=== PATIENT | female | born 1970 | race Hispanic/Latino ===

== ENCOUNTER 2017-04-01 09:06 | Day surgery (SDC) | payer MEDICAID ==
[~2017-04-01] VITALS: Ht 162.6 cm; Wt 102.5 kg
[~2017-04-01 09:06] MED LIST: SODIUM CHLORIDE 0.9% 1000ML 1,000 ML IV ONE
[2017-04-01 10:02] VITALS: BP 126/77
[2017-04-01] MEDS ORDERED: AZAT50TA PO (10:16)
[2017-04-01] MEDS ORDERED: BUPR100T13 PO (10:16)
[2017-04-01] MEDS ORDERED: HYDR25TA PO (10:16)
[2017-04-01] MEDS ORDERED: PROPOFOL 10 MG/ML 20ML VIAL IV ONE (10:30)
== END 2017-04-01 11:15 | disposition home or self-care (01) ==
LOC: DAH 09:06 → ENDO 09:06
PROVIDERS: ATTEND Internal Medicine
DX: K21.9 Gastro-esophageal reflux disease without esophagitis (principal); K29.60 Other gastritis without bleeding; K31.9 Disease of stomach and duodenum, unspecified; K75.4 Autoimmune hepatitis; B18.2 Chronic viral hepatitis C; K64.9 Unspecified hemorrhoids; Z86.010 Personal history of colon polyps; E66.9 Obesity, unspecified
CPT/HCPCS: 43239; 88305; 88312; 88342; A4606; J2704; J7030

== ENCOUNTER → 2017-04-14 | Outpatient (CLI) | payer MEDICAID ==
[~2017-04-14] MED LIST changes: +AZAT50TA PO; +BUPR100T13 PO; +HYDR25TA PO; -SODIUM CHLORIDE 0.9% 1000ML 1,000 ML IV ONE
== END | disposition home or self-care (01) ==
LOC: RAH 11:19
PROVIDERS: ATTEND Internal Medicine
DX: K74.60 Unspecified cirrhosis of liver (principal); K75.4 Autoimmune hepatitis; I86.8 Varicose veins of other specified sites; R16.1 Splenomegaly, not elsewhere classified; Z90.49 Acquired absence of other specified parts of digestive tract
CPT/HCPCS: 76700; 93975

== ENCOUNTER 2018-02-26 13:38 | Emergency (ER) | payer MEDICAID ==
[2018-02-26 15:48] LABS: APPEARANCE,URINE Clear (CLEAR); BILIRUBIN,URINE Negative (NEGATIVE); COLOR,URINE Dark Yellow (YELLOW); GLUCOSE, URINE (UA) Negative (NEGATIVE); KETONES,URINE Trace mg/dL (NEGATIVE); LEUKOCYTE ESTERASE ,URINE Negative (NEGATIVE); NITRATE,URINE Negative (NEGATIVE); OCCULT BLOOD,URINE Negative (NEGATIVE); PROTEIN,URINE Negative (NEGATIVE); UROBILINOGEN,URINE 0.2 mg/dL (0.2-1.0)
[2018-02-26] MEDS ORDERED: ONDANSETRON HCL 4 MG/2 ML VIAL ONE (15:55)
[2018-02-26] MEDS ORDERED: KETOROLAC TROMETHAMINE 30MG/ML ONE (15:55)
[2018-02-26] MEDS ORDERED: SODIUM CHLORIDE 0.9% 1000ML 1,000 ML IV ONE (15:55)
[2018-02-26 15:59] LABS: RBC,URINE 0-1 /HPF (0-1)
[2018-02-26 16:00] LABS: BACTERIA,URINE Rare /HPF (None Seen); SQUAMOUS EPITHELIAL CELL,UR 0-2 /HPF (0-2); TRICHOMONAS,URINE Few /LPF (None Seen); WBC,URINE 0-1 /HPF (0-1)
[2018-02-26 16:19] LABS: BASOPHILS % (AUTO) 0.1 % (0.0-5.0); EOSINOPHILS % (AUTO) 0.3 % (0.0-8.0); HEMATOCRIT 32.8 % (36-48); LYMPHOCYTES % (AUTO) 10.7 % (21.0-51.0); MEAN CORPUSCULAR HEMOGLOBIN 35.5 pg (27.0-33.0); MEAN CORPUSCULAR HGB CONC 35.3 g/dL (32.0-36.0); MEAN CORPUSCULAR VOLUME 100.5 fL (79-99); MONOCYTES % (AUTO) 5.7 % (3.0-13.0); NEUTROPHILS % (AUTO) 83.2 % (40.0-77.0); NUCLEATED RED BLOOD CELLS 0.2 % (0.0-0.19); PLATELET COUNT (AUTO) 67 K/uL (130-400); RED BLOOD CELL COUNT(AUTO) 3.26 MIL/uL (4.00-5.50); RED CELL DISTRIBUTION WIDTH 14.9 % (11.0-15.5); WHITE BLOOD COUNT (AUTO) 5.2 K/uL (4.8-10.8)
[2018-02-26 16:29] LABS: CREATININE 0.7 mg/dL (0.5-1.5); POTASSIUM 3.7 mmol/L (3.5-5.1)
[2018-02-26 16:37] LABS: ALBUMIN 2.6 g/dL (3.5-5.0); BILIRUBIN,TOTAL 0.4 mg/dL (0.2-1.0); TOTAL PROTEIN, SERUM 7.1 g/dL (6.0-8.3)
== END 2018-02-26 17:20 | disposition home or self-care (01) ==
LOC: EDH 13:38
DX: M54.6 Pain in thoracic spine (principal); R16.1 Splenomegaly, not elsewhere classified; I10 Essential (primary) hypertension; F32.9 Major depressive disorder, single episode, unspecified; Z85.6 Personal history of leukemia; Z90.710 Acquired absence of both cervix and uterus
CPT/HCPCS: 36415; 74176; 80053; 81001; 83690; 85025; 96374; 96375; 99284; J1885; J2405; J7030

== ENCOUNTER 2019-05-24 21:16 | Emergency (ER) | payer MEDICAID | END 2019-05-24 22:16 | disposition home or self-care (01) | LOC: EDH 21:16 | DX: S61.305A Unspecified open wound of left ring finger with damage to nail, initial encounter (principal); S08 Avulsion and traumatic amputation of part of head; F32.9 Major depressive disorder, single episode, unspecified; I10 Essential (primary) hypertension; Z71.0 Person encountering health services to consult on behalf of another person; Z90.49 Acquired absence of other specified parts of digestive tract; X58.XXXA Exposure to other specified factors, initial encounter; Y93.89 Activity, other specified; Y92.098 Other place in other non-institutional residence as the place of occurrence of the external cause; Y99.8 Other external cause status | CPT/HCPCS: 73140 ==

== ENCOUNTER → 2020-01-13 | Outpatient (CLI) | payer MEDICAID | END | disposition home or self-care (01) | LOC: RAH 09:06 | PROVIDERS: ATTEND Internal Medicine Gastroenterology | DX: R16.1 Splenomegaly, not elsewhere classified (principal); K74.60 Unspecified cirrhosis of liver; K75.4 Autoimmune hepatitis | CPT/HCPCS: 76700; 93975 ==

== ENCOUNTER → 2020-09-24 | Outpatient (CLI) | payer MEDICAID | END | disposition home or self-care (01) | LOC: RAH 08:55 | PROVIDERS: ATTEND Internal Medicine | DX: B19.20 Unspecified viral hepatitis C without hepatic coma (principal); B20 Human immunodeficiency virus [HIV] disease | CPT/HCPCS: 76705 ==

== ENCOUNTER 2021-06-14 12:01 | Emergency (ER) | payer MEDICAID ==
[~2021-06-14] VITALS: Ht 162.6 cm; Wt 118.8 kg
[2021-06-14] MEDS ORDERED: KETOROLAC 15MG/ML VIAL (15MG/ML) IM ONE (13:00)
[2021-06-14] MEDS ORDERED: NAPR500T6 PO (14:27)
[2021-06-14 14:50] VITALS: BP 134/74
== END 2021-06-14 14:52 | disposition home or self-care (01) ==
LOC: EDH 12:01
DX: M25.512 Pain in left shoulder (principal); R20.2 Paresthesia of skin; F32.A Depression, unspecified; Z79.1 Long term (current) use of non-steroidal anti-inflammatories (NSAID); Z79.899 Other long term (current) drug therapy; Z90.49 Acquired absence of other specified parts of digestive tract
CPT/HCPCS: 71045; 96372; 99283; J1885

== ENCOUNTER → 2022-08-11 | Outpatient (CLI) | payer MEDICAID ==
[~2022-08-11] MED LIST changes: +NAPR500T6 PO
[2022-08-11 12:07] LABS: CREATININE 0.9 mg/dL (0.5-1.5); POTASSIUM 3.4 mmol/L (3.5-5.1)
== END | disposition home or self-care (01) ==
LOC: LAB 10:00
PROVIDERS: ATTEND Student in an Organized Health Care Education/Training Program
DX: I10 Essential (primary) hypertension (principal)
CPT/HCPCS: 36415; 80048

== ENCOUNTER → 2022-08-14 | Outpatient (CLI) | payer MEDICAID ==
[~2022-08-14] MED LIST changes: +IOHEXOL 350 MG/ML 100ML INFUS..BTL IV ONE; +METOPROLOL TARTRATE 1 MG/ML 5ML VIAL IV ONE
== END | disposition home or self-care (01) ==
LOC: RAH 08:16
PROVIDERS: ATTEND Student in an Organized Health Care Education/Training Program
DX: R07.9 Chest pain, unspecified (principal)
CPT/HCPCS: 75574; J3490 ×3; Q9967

== ENCOUNTER 2022-11-14 12:05 | Emergency (ER) | payer MEDICAID ==
[~2022-11-14] VITALS: Ht 162.6 cm; Wt 122.5 kg
[~2022-11-14 12:05] MED LIST changes: -IOHEXOL 350 MG/ML 100ML INFUS..BTL IV ONE; -METOPROLOL TARTRATE 1 MG/ML 5ML VIAL IV ONE
[2022-11-14 12:45] LABS: BASOPHILS # (AUTO) 0.01 K/uL (0.00-0.20); BASOPHILS % (AUTO) 0.2 % (0.0-5.0); EOSINOPHILS % (AUTO) 1.8 % (0.0-8.0); HEMATOCRIT 35.2 % (36-48); IMMATURE GRANULOCYTE ABSOLUTE 0.02 K/uL (0-1); LYMPHOCYTES # (AUTO) 0.4 K/uL (1.0-4.8); LYMPHOCYTES % (AUTO) 6.6 % (21.0-51.0); MEAN CORPUSCULAR HEMOGLOBIN 27.4 pg (27.0-33.0); MEAN CORPUSCULAR HGB CONC 31.3 g/dL (32.0-36.0); MEAN CORPUSCULAR VOLUME 87.8 fL (79-99); MONOCYTES # (AUTO) 0.5 K/uL (0.1-1.0); MONOCYTES % (AUTO) 8.9 % (3.0-13.0); NEUTROPHILS # (AUTO) 4.5 K/uL (1.8-7.7); NEUTROPHILS % (AUTO) 82.1 % (40.0-77.0); PLATELET COUNT (AUTO) 152 K/uL (130-400); RED BLOOD CELL COUNT(AUTO) 4.01 MIL/uL (4.00-5.50); RED CELL DISTRIBUTION WIDTH 15.4 % (11.0-15.5); WHITE BLOOD COUNT (AUTO) 5.5 K/uL (4.8-10.8)
[2022-11-14 13:02] LABS: CREATININE 0.8 mg/dL (0.5-1.5); POTASSIUM 3.8 mmol/L (3.5-5.1)
[2022-11-14 13:06] LABS: ALBUMIN 2.2 g/dL (3.5-5.0); BILIRUBIN,TOTAL 0.6 mg/dL (0.2-1.0); TOTAL PROTEIN, SERUM 7.1 g/dL (6.0-8.3)
[2022-11-14 13:26] LABS: INR 1.06 (0.85-1.15); PROTHROMBIN TIME 12.2 SEC (9.6-11.6)
[2022-11-14 13:27] LABS: PARTIAL THROMBOPLASTIN TIME 36.2 SEC (26.3-35.5)
[2022-11-14] MEDS ORDERED: IPRATROPIUM/ALBUTEROL SULFATE 3 ML SOLUTION IH STA (13:44)
[2022-11-14 13:53] LABS: SARS-CoV-2, RNA, NAAT NEGATIVE SARS CoV-2 (NEGATIVE)
[2022-11-14 13:57] VITALS: PULSE 106; RESP 24
[2022-11-14 13:58] LABS: INFLUENZA TYPE A Negative For Type A (NEGATIVE); INFLUENZA TYPE B Negative For Type B (NEGATIVE)
[2022-11-14] MEDS ORDERED: ACET-66 PO (14:28)
[2022-11-14] MEDS ORDERED: LORA10TA7 PO (14:28)
[2022-11-14] MEDS ORDERED: FLUT16H NASAL (14:28)
[2022-11-14 14:37] VITALS: BP 152/79; PULSE 96; RESP 20; O2SAT 99
== END 2022-11-14 14:37 | disposition home or self-care (01) ==
LOC: EDH 12:05
DX: J06.9 Acute upper respiratory infection, unspecified (principal); F32.A Depression, unspecified; I10 Essential (primary) hypertension; Z79.624 Long term (current) use of inhibitors of nucleotide synthesis; Z79.631 Long term (current) use of antimetabolite agent; Z79.899 Other long term (current) drug therapy; Z90.49 Acquired absence of other specified parts of digestive tract; Z20.822 Contact with and (suspected) exposure to COVID-19
CPT/HCPCS: 99285; 71045; 87635; 82550; 84484; 80053; 83880; 82140; 85025; 85610; 85730; 87040 ×2; 87804 ×2; 83605; 36415; 93005; 94640; C9803

== ENCOUNTER 2022-11-22 15:14 | Inpatient (IN) | payer MEDICAID ==
[~2022-11-22] VITALS: Ht 162.6 cm; Wt 108.0 kg
[~2022-11-22 15:14] MED LIST changes: +ACET-66 PO; +FLUT16H NASAL; +LORA10TA7 PO
[2022-11-22 16:12] LABS: BASOPHILS # (AUTO) 0.01 K/uL (0.00-0.20); BASOPHILS % (AUTO) 0.1 % (0.0-5.0); HEMATOCRIT 38.6 % (36-48); IMMATURE GRANULOCYTE ABSOLUTE 0.07 K/uL (0-1); LYMPHOCYTES # (AUTO) 0.3 K/uL (1.0-4.8); LYMPHOCYTES % (AUTO) 2.3 % (21.0-51.0); MEAN CORPUSCULAR HEMOGLOBIN 27.3 pg (27.0-33.0); MEAN CORPUSCULAR HGB CONC 31.6 g/dL (32.0-36.0); MEAN CORPUSCULAR VOLUME 86.4 fL (79-99); MONOCYTES # (AUTO) 0.3 K/uL (0.1-1.0); MONOCYTES % (AUTO) 2.8 % (3.0-13.0); NEUTROPHILS # (AUTO) 10.5 K/uL (1.8-7.7); NEUTROPHILS % (AUTO) 94.2 % (40.0-77.0); PLATELET COUNT (AUTO) 204 K/uL (130-400); RED BLOOD CELL COUNT(AUTO) 4.47 MIL/uL (4.00-5.50); WHITE BLOOD COUNT (AUTO) 11.2 K/uL (4.8-10.8)
[2022-11-22 16:23] LABS: CREATININE 0.8 mg/dL (0.5-1.5); POTASSIUM 3.8 mmol/L (3.5-5.1)
[2022-11-22 16:33] LABS: BILIRUBIN,TOTAL 1.1 mg/dL (0.2-1.0); TOTAL PROTEIN, SERUM 7.1 g/dL (6.0-8.3)
[2022-11-22 16:36] LABS: B-TYPE NATRIURETIC PEPTIDE 23 pg/mL (0-100)
[2022-11-22 16:43] LABS: SARS-CoV-2, RNA, NAAT NEGATIVE SARS CoV-2 (NEGATIVE)
[2022-11-22 16:50] LABS: INFLUENZA TYPE A Negative For Type A (NEGATIVE); INFLUENZA TYPE B Negative For Type B (NEGATIVE)
[2022-11-22] MEDS ORDERED: IOHEXOL-350 50ML VIAL IV ONE (18:50)
[2022-11-22] MEDS ORDERED: LACTATED RINGERS 1000ML 1,000 ML IV SCH (19:30)
[2022-11-22] MEDS ORDERED: ONDANSETRON 4MG INJ IV PRN (19:30)
[2022-11-22] MEDS ORDERED: POTASSIUM CHLORIDE 10MEQ/100ML 100 ML IV PRN (20:00)
[2022-11-22] MEDS ORDERED: POTASSIUM CHLORIDE 10% ELIXIR 20 MEQ/15 ML UDCUP PO PRN (20:00)
[2022-11-22 20:14] VITALS: PULSE 100; RESP 20; O2SAT 97
[2022-11-22 20:17] LABS: APPEARANCE,URINE SL CLOUDY (CLEAR); BILIRUBIN,URINE NEGATIVE (NEGATIVE); COLOR,URINE YELLOW (YELLOW); GLUCOSE, URINE (UA) NEGATIVE (NEGATIVE); KETONES,URINE NEGATIVE (NEGATIVE); LEUKOCYTE ESTERASE ,URINE NEGATIVE Leu/uL (NEGATIVE); NITRATE,URINE NEGATIVE (NEGATIVE); OCCULT BLOOD,URINE NEGATIVE (NEGATIVE); PROTEIN,URINE NEGATIVE (NEGATIVE)
[2022-11-22 20:18] LABS: ADD UA MICROSCOPIC YES
[2022-11-22 20:25] LABS: BACTERIA,URINE FEW /HPF (None Seen); MUCUS,URINE RARE LPF (None Seen); SQUAMOUS EPITHELIAL CELL,UR RARE /HPF (0-2); WBC,URINE 0-1 /HPF (0-1); YEAST,URINE BUDDING RARE /HPF (None Seen)
[2022-11-22] MEDS: INSULIN HUMULIN R 100 UNIT/ML 3ML SQ SCH (20:37)
[2022-11-22 21:43] VITALS: O2SAT 96
[2022-11-22 21:44] VITALS: O2SAT 96
[2022-11-22 21:46] VITALS: BP 111/61; PULSE 98; RESP 18
[2022-11-22] MEDS ORDERED: LACTULOSE 20 GM/30 ML UDCUP PO PRN (23:00)
[2022-11-22 23:43] VITALS: PULSE 94; RESP 20
[2022-11-22] MEDS: FUROSEMIDE 40MG VIAL IV SCH (23:47)
[2022-11-23] VITALS (12 sets, daily range): BP systolic 119–136; BP diastolic 66–82; PULSE 90–111; RESP 18–24; O2SAT 95–97
[2022-11-23 01:29] LABS: ABG BASE EXCESS 4.8 mmol/L (-2.0-3.0); ABG HCO3 27.7 mmol/L (21.0-28.0); ABG OXYGEN SATURATION 94.9 % (95.0-99.0); ABG PCO2 35 mmHg (32-45); ABG PH 7.514 (7.35-7.450); PO2, ARTERIAL BG 70.4 mmHg (83.0-108.0); VENT MODE, BG NC,28 (ROOM AIR)
[2022-11-23] MEDS: ALBUTEROL 0.083% 2.5 MG/3 ML INH IH SCH ×2 (01:41→06:58)
[2022-11-23] MEDS: ACETAMINOPHEN 325 MG TAB PO PRN ×2 (03:26→16:17)
[2022-11-23] MEDS: INSULIN HUMULIN R 100 UNIT/ML 3ML SQ SCH ×4 (05:11→21:00)
[2022-11-23 06:02] LABS: BASOPHILS # (AUTO) 0.02 K/uL (0.00-0.20); BASOPHILS % (AUTO) 0.2 % (0.0-5.0); EOSINOPHILS # (AUTO) 0.11 K/uL (0.00-0.70); EOSINOPHILS % (AUTO) 1.2 % (0.0-8.0); HEMATOCRIT 34.6 % (36-48); IMMATURE GRANULOCYTE ABSOLUTE 0.05 K/uL (0-1); LYMPHOCYTES # (AUTO) 0.5 K/uL (1.0-4.8); LYMPHOCYTES % (AUTO) 5.4 % (21.0-51.0); MEAN CORPUSCULAR HEMOGLOBIN 27.5 pg (27.0-33.0); MEAN CORPUSCULAR HGB CONC 32.1 g/dL (32.0-36.0); MEAN CORPUSCULAR VOLUME 85.9 fL (79-99); MONOCYTES % (AUTO) 10.9 % (3.0-13.0); NEUTROPHILS # (AUTO) 7.8 K/uL (1.8-7.7); NEUTROPHILS % (AUTO) 81.8 % (40.0-77.0); PLATELET COUNT (AUTO) 187 K/uL (130-400); RED BLOOD CELL COUNT(AUTO) 4.03 MIL/uL (4.00-5.50); RED CELL DISTRIBUTION WIDTH 16.1 % (11.0-15.5); WHITE BLOOD COUNT (AUTO) 9.5 K/uL (4.8-10.8)
[2022-11-23 06:14] LABS: CREATININE 0.9 mg/dL (0.5-1.5); PHOSPHORUS 3.6 mg/dL (2.5-4.9); POTASSIUM 3.4 mmol/L (3.5-5.1)
[2022-11-23 06:17] LABS: HEMOGLOBIN A1C 5.4 % (4.0-6.0)
[2022-11-23 06:20] LABS: INR 1.13 (0.85-1.15)
[2022-11-23 06:21] LABS: PARTIAL THROMBOPLASTIN TIME 36.3 SEC (26.3-35.5)
[2022-11-23] MEDS: KCL 20 MEQ ERTAB PO PRN ×2 (06:28→08:25)
[2022-11-23 08:07] LABS: TOTAL PROTEIN, SERUM 6.9 g/dL (6.0-8.3)
[2022-11-23] MEDS: LACTULOSE 20 GM/30 ML UDCUP PO SCH ×2 (08:22→20:02)
[2022-11-23] MEDS: FAMOTIDINE 20MG VIAL IV SCH (08:26)
[2022-11-23] MEDS ORDERED: HYDRALAZINE 20MG/ML VIAL IV PRN (08:30)
[2022-11-23] MEDS ORDERED: LABETALOL 20MG VIAL IV PRN (08:30)
[2022-11-23] MEDS ORDERED: MV-M1TAB66 PO (09:49)
[2022-11-23] MEDS ORDERED: DICY20TA3 PO (09:49)
[2022-11-23] MEDS ORDERED: [UNRECOGNIZED DRUG - CODE] PO (09:49)
[2022-11-23] MEDS ORDERED: VITA1TAB22 PO (09:49)
[2022-11-23] MEDS ORDERED: SPIR25TA6 PO (09:49)
[2022-11-23] MEDS ORDERED: LORA10TA7 PO (09:49)
[2022-11-23] MEDS ORDERED: FERS325 PO (09:49)
[2022-11-23] MEDS ORDERED: DOLU1TAB2 PO (09:49)
[2022-11-23] MEDS ORDERED: BUPR-317 PO (09:49)
[2022-11-23] MEDS ORDERED: AVAT20TA PO (09:49)
[2022-11-23] MEDS ORDERED: SUCR1TAB2 PO (09:49)
[2022-11-23] MEDS: FUROSEMIDE 40MG VIAL IV SCH ×2 (11:52→22:46)
[2022-11-23] MEDS ORDERED: LIDOCAINE HCL MPF 1% 5ML VIAL ONE (14:24)
[2022-11-23] MEDS: CEFTRIAXONE 1G VIAL IVPB SCH (14:55)
[2022-11-23] MEDS: AZITHROMYCIN 500MG+NS 250ML IVPB SCH (16:09)
[2022-11-23 16:54] LABS: GLUCOSE PLEURAL FLUID 67; PROTEIN PLEURAL FLUID 4.3 mg/dL
[2022-11-23 17:27] LABS: BODY FLUID RBC 10234 /cu. mm.; BODY FLUID WBC 1580 /cu. mm.
[2022-11-23] MEDS: MORPHINE 2 MG SYG IV PRN (20:02)
[2022-11-23 20:29] LABS: BF LYMPHOCYTE 43 %; BF MACROPHAGE 2; BF MONOCYTE 2 %; BF TOTAL CELLS COUNTED 100
[2022-11-23 20:32] LABS: APPEARANCE BODY FLUID CLOUDY (CLEAR); SPECIMENTYPE,BODY FLUID PLEURAL
[2022-11-23 20:33] LABS: COLOR,BODY FLUID ORANGE (LT YELLOW); TOTAL VOLUME,BODY FLUID 750 mL
[2022-11-23 20:38] LABS: PH PLEURAL FLUID 7
[2022-11-23] MEDS: MORPHINE 4 MG SYG IV PRN (22:46)
[2022-11-24] VITALS (7 sets, daily range): BP systolic 118–138; BP diastolic 73–94; PULSE 71–100; RESP 18–20; O2SAT 97
[2022-11-24] MEDS: MORPHINE 2 MG SYG IV PRN ×3 (01:12→23:49)
[2022-11-24] MEDS: ACETAMINOPHEN 325 MG TAB PO PRN ×3 (01:18→18:50)
[2022-11-24] MEDS: MORPHINE 4 MG SYG IV PRN (05:06)
[2022-11-24] MEDS: INSULIN HUMULIN R 100 UNIT/ML 3ML SQ SCH ×4 (06:36→21:00)
[2022-11-24] MEDS: LACTULOSE 20 GM/30 ML UDCUP PO SCH ×2 (08:21→22:39)
[2022-11-24] MEDS: FAMOTIDINE 20MG VIAL IV SCH (08:23)
[2022-11-24 09:03] LABS: HEPATITIS C ANTIBODY Reactive (Nonreactive)
[2022-11-24] MEDS: FUROSEMIDE 40MG VIAL IV SCH (10:23)
[2022-11-24 11:50] LABS: HEPATITIS A IGM ANTIBODY Non-Reactive (Nonreactive); HEPATITIS B CORE IGM ANTIBODY Non-Reactive (Negative); HEPATITIS B SURFACE ANTIGEN Non-Reactive (Nonreactive)
[2022-11-24] MEDS: CEFTRIAXONE 1G VIAL IVPB SCH (14:31)
[2022-11-24] MEDS: AZITHROMYCIN 500MG+NS 250ML IVPB SCH (14:31)
[2022-11-24] MEDS ORDERED: BACTRIM 800MG/160MG 10ML VIAL 0 MG in 0.9%NACL 100ML 100 ML IV SCH (22:30)
[2022-11-24] MEDS: FAMOTIDINE 20MG TAB PO SCH (22:39)
[2022-11-24] MEDS: ZOSYN 3.375GM +NS 50ML IVPB SCH (22:47)
[2022-11-24] MEDS ORDERED: 0.9%NACL 50ML IV SCH (23:00)
[2022-11-25] VITALS (8 sets, daily range): BP systolic 106–127; BP diastolic 55–73; PULSE 81–98; RESP 18–20; O2SAT 96–97
[2022-11-25] MEDS: BACTRIM IV SCH ×2 (01:02→12:38)
[2022-11-25] MEDS: WATER IV SCH ×2 (01:02→12:38)
[2022-11-25] MEDS: DEXTROSE 5% IV SCH ×2 (01:02→12:38)
[2022-11-25] MEDS: ACETAMINOPHEN 325 MG TAB PO PRN ×3 (01:08→22:50)
[2022-11-25 04:29] LABS: BASOPHILS # (AUTO) 0.01 K/uL (0.00-0.20); BASOPHILS % (AUTO) 0.1 % (0.0-5.0); EOSINOPHILS # (AUTO) 0.09 K/uL (0.00-0.70); EOSINOPHILS % (AUTO) 1.3 % (0.0-8.0); IMMATURE GRANULOCYTE ABSOLUTE 0.03 K/uL (0-1); LYMPHOCYTES # (AUTO) 0.4 K/uL (1.0-4.8); LYMPHOCYTES % (AUTO) 5.2 % (21.0-51.0); MEAN CORPUSCULAR HEMOGLOBIN 27.4 pg (27.0-33.0); MEAN CORPUSCULAR HGB CONC 31.8 g/dL (32.0-36.0); MEAN CORPUSCULAR VOLUME 86.2 fL (79-99); MONOCYTES # (AUTO) 0.8 K/uL (0.1-1.0); MONOCYTES % (AUTO) 12.6 % (3.0-13.0); NEUTROPHILS # (AUTO) 5.4 K/uL (1.8-7.7); NEUTROPHILS % (AUTO) 80.4 % (40.0-77.0); PLATELET COUNT (AUTO) 135 K/uL (130-400); RED BLOOD CELL COUNT(AUTO) 3.83 MIL/uL (4.00-5.50); RED CELL DISTRIBUTION WIDTH 15.2 % (11.0-15.5); WHITE BLOOD COUNT (AUTO) 6.7 K/uL (4.8-10.8)
[2022-11-25 04:53] LABS: % IRON SATURATION 10.5 % (22-44)
[2022-11-25 05:10] LABS: ALBUMIN 1.6 g/dL (3.5-5.0); BILIRUBIN,TOTAL 0.7 mg/dL (0.2-1.0); CREATININE 0.7 mg/dL (0.5-1.5); MAGNESIUM 1.9 mg/dL (1.80-2.40); PHOSPHORUS 3.1 mg/dL (2.5-4.9); TOTAL PROTEIN, SERUM 6.3 g/dL (6.0-8.3)
[2022-11-25 05:11] LABS: POTASSIUM 2.9 mmol/L (3.5-5.1)
[2022-11-25] MEDS: MAGNESIUM 2GM PREMIX 50ML 50 ML IV PRN (05:28)
[2022-11-25] MEDS: KCL 20 MEQ ERTAB PO PRN ×5 (05:29→19:40)
[2022-11-25] MEDS: INSULIN HUMULIN R 100 UNIT/ML 3ML SQ SCH ×4 (05:48→19:39)
[2022-11-25] MEDS: ZOSYN 3.375GM +NS 50ML IVPB SCH ×3 (06:27→22:50)
[2022-11-25] MEDS: ENOXAPARIN SODIUM 40 MG/0.4 ML SYRINGE SQ SCH (09:00)
[2022-11-25] MEDS: FLUCONAZOLE 400 MG/NS 200 ML 200 ML IV SCH (09:30)
[2022-11-25] MEDS: LACTULOSE 20 GM/30 ML UDCUP PO SCH ×2 (09:31→20:10)
[2022-11-25] MEDS: FAMOTIDINE 20MG TAB PO SCH ×2 (09:31→20:10)
[2022-11-25] MEDS: MORPHINE 2 MG SYG IV PRN ×2 (10:41→16:16)
[2022-11-25] MEDS: AZITHROMYCIN 500MG+NS 250ML IVPB SCH (14:28)
[2022-11-25 15:14] LABS: ABSOLUTE CD4 COUNT 111 /uL (359-1519); ABSOLUTE CD8 SUPPRESSOR 114 /uL (109-897); Basophils% 0 % (Not Estab.); Lymphocytes(Absolute) 0.4 x10E3/uL (0.7-3.1); MCV 87 fL (79-97); PERCENT CD4 CELLS 27.7 % (30.8-58.5); PERCENT CD8 POS. LYMPH. 28.5 % (12.0-35.5)
[2022-11-25 17:05] LABS: MAGNESIUM 2.3 mg/dL (1.80-2.40); POTASSIUM 3.8 mmol/L (3.5-5.1)
[2022-11-25] MEDS ORDERED: IOHEXOL-350 75 ML VIAL IV ONE (17:46)
[2022-11-25] MEDS: LUBIPROSTONE 24 MCG CAP PO SCH (19:39)
[2022-11-25] MEDS ORDERED: IRON SUCROSE COMPLEX 300 MG in 0.9% NACL 250ML 250 ML IV ONE (21:00)
[2022-11-26] VITALS (9 sets, daily range): BP systolic 104–138; BP diastolic 54–72; PULSE 72–108; RESP 18–20; O2SAT 95–97
[2022-11-26] MEDS: WATER IV SCH ×2 (01:21→13:30)
[2022-11-26] MEDS: BACTRIM IV SCH ×2 (01:21→13:30)
[2022-11-26] MEDS: DEXTROSE 5% IV SCH ×2 (01:21→13:30)
[2022-11-26 04:02] LABS: BASOPHILS # (AUTO) 0.02 K/uL (0.00-0.20); BASOPHILS % (AUTO) 0.3 % (0.0-5.0); EOSINOPHILS # (AUTO) 0.02 K/uL (0.00-0.70); EOSINOPHILS % (AUTO) 0.3 % (0.0-8.0); HEMATOCRIT 31.5 % (36-48); IMMATURE GRANULOCYTE ABSOLUTE 0.03 K/uL (0-1); LYMPHOCYTES # (AUTO) 0.4 K/uL (1.0-4.8); LYMPHOCYTES % (AUTO) 4.9 % (21.0-51.0); MEAN CORPUSCULAR HEMOGLOBIN 27.4 pg (27.0-33.0); MEAN CORPUSCULAR HGB CONC 31.7 g/dL (32.0-36.0); MEAN CORPUSCULAR VOLUME 86.3 fL (79-99); MONOCYTES # (AUTO) 0.8 K/uL (0.1-1.0); MONOCYTES % (AUTO) 10.4 % (3.0-13.0); NEUTROPHILS % (AUTO) 83.7 % (40.0-77.0); PLATELET COUNT (AUTO) 137 K/uL (130-400); RED BLOOD CELL COUNT(AUTO) 3.65 MIL/uL (4.00-5.50); RED CELL DISTRIBUTION WIDTH 15.2 % (11.0-15.5); WHITE BLOOD COUNT (AUTO) 7.2 K/uL (4.8-10.8)
[2022-11-26 04:11] LABS: CREATININE 0.8 mg/dL (0.5-1.5); MAGNESIUM 1.9 mg/dL (1.80-2.40); POTASSIUM 3.5 mmol/L (3.5-5.1)
[2022-11-26] MEDS: KCL 20 MEQ ERTAB PO PRN ×2 (05:03→08:57)
[2022-11-26] MEDS: MAGNESIUM 2GM PREMIX 50ML 50 ML IV PRN (05:03)
[2022-11-26] MEDS: INSULIN HUMULIN R 100 UNIT/ML 3ML SQ SCH ×4 (05:23→20:56)
[2022-11-26] MEDS: ZOSYN 3.375GM +NS 50ML IVPB SCH ×2 (05:51→16:03)
[2022-11-26] MEDS: FAMOTIDINE 20MG TAB PO SCH ×2 (08:57→21:09)
[2022-11-26] MEDS: FLUCONAZOLE 400 MG/NS 200 ML 200 ML IV SCH (08:57)
[2022-11-26] MEDS: LACTULOSE 20 GM/30 ML UDCUP PO SCH ×2 (08:57→21:09)
[2022-11-26] MEDS: LUBIPROSTONE 24 MCG CAP PO SCH ×2 (08:57→16:36)
[2022-11-26] MEDS: ENOXAPARIN SODIUM 40 MG/0.4 ML SYRINGE SQ SCH (09:00)
[2022-11-26] MEDS: MORPHINE 2 MG SYG IV PRN (11:46)
[2022-11-26] MEDS: AZITHROMYCIN 500MG+NS 250ML IVPB SCH (13:15)
[2022-11-26 15:54] LABS: INR 1.31 (0.85-1.15); PROTHROMBIN TIME 13.9 SEC (9.6-11.6)
[2022-11-26 21:09] LABS: MYCOPLASMA AB IGM <770 U/mL (0-769)
[2022-11-27] VITALS (8 sets, daily range): BP systolic 105–140; BP diastolic 50–74; PULSE 70–106; RESP 18–20; O2SAT 98–99
[2022-11-27] MEDS: DEXTROSE 5% IV SCH ×2 (00:04→12:06)
[2022-11-27] MEDS: ZOSYN 3.375GM +NS 50ML IVPB SCH ×4 (00:04→23:11)
[2022-11-27] MEDS: WATER IV SCH ×2 (00:04→12:06)
[2022-11-27] MEDS: BACTRIM IV SCH ×2 (00:04→12:06)
[2022-11-27] MEDS: ACETAMINOPHEN 325 MG TAB PO PRN ×2 (02:22→12:27)
[2022-11-27] MEDS: INSULIN HUMULIN R 100 UNIT/ML 3ML SQ SCH ×4 (06:02→20:48)
[2022-11-27 08:24] LABS: HEMATOCRIT 30.6 % (36-48); MEAN CORPUSCULAR HEMOGLOBIN 27.9 pg (27.0-33.0); MEAN CORPUSCULAR HGB CONC 32.7 g/dL (32.0-36.0); MEAN CORPUSCULAR VOLUME 85.5 fL (79-99); RED BLOOD CELL COUNT(AUTO) 3.58 MIL/uL (4.00-5.50); RED CELL DISTRIBUTION WIDTH 15.1 % (11.0-15.5); WHITE BLOOD COUNT (AUTO) 5.8 K/uL (4.8-10.8)
[2022-11-27 08:28] LABS: ALBUMIN 1.6 g/dL (3.5-5.0); BILIRUBIN,TOTAL 0.4 mg/dL (0.2-1.0); CREATININE 0.7 mg/dL (0.5-1.5); MAGNESIUM 2.1 mg/dL (1.80-2.40); POTASSIUM 3.9 mmol/L (3.5-5.1); TOTAL PROTEIN, SERUM 6.5 g/dL (6.0-8.3)
[2022-11-27] MEDS: LUBIPROSTONE 24 MCG CAP PO SCH ×2 (08:57→16:27)
[2022-11-27] MEDS: FAMOTIDINE 20MG TAB PO SCH ×2 (08:57→20:48)
[2022-11-27] MEDS: FLUCONAZOLE 400 MG/NS 200 ML 200 ML IV SCH (08:57)
[2022-11-27] MEDS: ENOXAPARIN SODIUM 40 MG/0.4 ML SYRINGE SQ SCH (08:58)
[2022-11-27] MEDS: LACTULOSE 20 GM/30 ML UDCUP PO SCH ×2 (08:58→20:48)
[2022-11-27] MEDS: DOXYCYCLINE 100MG+NS 250ML IV SCH ×2 (11:43→20:42)
[2022-11-28] VITALS (8 sets, daily range): BP systolic 103–146; BP diastolic 57–74; PULSE 92–98; RESP 16–22; O2SAT 97–98
[2022-11-28] MEDS: BACTRIM IV SCH ×3 (00:53→23:04)
[2022-11-28] MEDS: WATER IV SCH ×3 (00:53→23:04)
[2022-11-28] MEDS: DEXTROSE 5% IV SCH ×3 (00:53→23:04)
[2022-11-28] MEDS: ACETAMINOPHEN 325 MG TAB PO PRN ×3 (04:39→20:57)
[2022-11-28] MEDS: ZOSYN 3.375GM +NS 50ML IVPB SCH ×3 (06:19→22:34)
[2022-11-28] MEDS: INSULIN HUMULIN R 100 UNIT/ML 3ML SQ SCH ×4 (06:55→20:52)
[2022-11-28 08:13] LABS: BASOPHILS # (AUTO) 0.02 K/uL (0.00-0.20); BASOPHILS % (AUTO) 0.4 % (0.0-5.0); EOSINOPHILS # (AUTO) 0.05 K/uL (0.00-0.70); EOSINOPHILS % (AUTO) 0.9 % (0.0-8.0); HEMATOCRIT 29.2 % (36-48); IMMATURE GRANULOCYTE ABSOLUTE 0.03 K/uL (0-1); LYMPHOCYTES # (AUTO) 0.3 K/uL (1.0-4.8); LYMPHOCYTES % (AUTO) 5.5 % (21.0-51.0); MEAN CORPUSCULAR HEMOGLOBIN 27.5 pg (27.0-33.0); MEAN CORPUSCULAR HGB CONC 32.2 g/dL (32.0-36.0); MEAN CORPUSCULAR VOLUME 85.4 fL (79-99); MONOCYTES # (AUTO) 0.6 K/uL (0.1-1.0); MONOCYTES % (AUTO) 10.5 % (3.0-13.0); NEUTROPHILS # (AUTO) 4.5 K/uL (1.8-7.7); NEUTROPHILS % (AUTO) 82.1 % (40.0-77.0); PLATELET COUNT (AUTO) 92 K/uL (130-400); RED BLOOD CELL COUNT(AUTO) 3.42 MIL/uL (4.00-5.50); RED CELL DISTRIBUTION WIDTH 15.2 % (11.0-15.5); WHITE BLOOD COUNT (AUTO) 5.4 K/uL (4.8-10.8)
[2022-11-28 08:25] LABS: CREATININE 0.8 mg/dL (0.5-1.5); POTASSIUM 3.9 mmol/L (3.5-5.1)
[2022-11-28] MEDS: DOXYCYCLINE 100MG+NS 250ML IV SCH ×2 (08:48→20:51)
[2022-11-28] MEDS: LACTULOSE 20 GM/30 ML UDCUP PO SCH ×2 (08:48→20:52)
[2022-11-28] MEDS: FAMOTIDINE 20MG TAB PO SCH ×2 (08:48→20:51)
[2022-11-28] MEDS: FLUCONAZOLE 400 MG/NS 200 ML 200 ML IV SCH (08:48)
[2022-11-28] MEDS: LUBIPROSTONE 24 MCG CAP PO SCH ×2 (08:48→16:03)
[2022-11-28] MEDS: ENOXAPARIN SODIUM 40 MG/0.4 ML SYRINGE SQ SCH (09:00)
[2022-11-29] VITALS (8 sets, daily range): BP systolic 101–124; BP diastolic 58–68; PULSE 92–103; RESP 18–22; O2SAT 98
[2022-11-29 05:34] LABS: BASOPHILS # (AUTO) 0.01 K/uL (0.00-0.20); BASOPHILS % (AUTO) 0.2 % (0.0-5.0); EOSINOPHILS # (AUTO) 0.07 K/uL (0.00-0.70); EOSINOPHILS % (AUTO) 1.5 % (0.0-8.0); HEMATOCRIT 28.3 % (36-48); IMMATURE GRANULOCYTE ABSOLUTE 0.04 K/uL (0-1); LYMPHOCYTES # (AUTO) 0.3 K/uL (1.0-4.8); LYMPHOCYTES % (AUTO) 5.9 % (21.0-51.0); MEAN CORPUSCULAR HEMOGLOBIN 27.7 pg (27.0-33.0); MEAN CORPUSCULAR HGB CONC 32.2 g/dL (32.0-36.0); MONOCYTES # (AUTO) 0.5 K/uL (0.1-1.0); MONOCYTES % (AUTO) 10.5 % (3.0-13.0); NEUTROPHILS # (AUTO) 3.7 K/uL (1.8-7.7); PLATELET COUNT (AUTO) 108 K/uL (130-400); RED BLOOD CELL COUNT(AUTO) 3.29 MIL/uL (4.00-5.50); RED CELL DISTRIBUTION WIDTH 15.4 % (11.0-15.5); WHITE BLOOD COUNT (AUTO) 4.6 K/uL (4.8-10.8)
[2022-11-29] MEDS: ZOSYN 3.375GM +NS 50ML IVPB SCH ×2 (05:47→15:28)
[2022-11-29] MEDS: ACETAMINOPHEN 325 MG TAB PO PRN ×3 (05:55→18:17)
[2022-11-29 05:56] LABS: CREATININE 0.7 mg/dL (0.5-1.5); MAGNESIUM 1.9 mg/dL (1.80-2.40); POTASSIUM 4.1 mmol/L (3.5-5.1)
[2022-11-29] MEDS: INSULIN HUMULIN R 100 UNIT/ML 3ML SQ SCH ×4 (05:56→20:47)
[2022-11-29] MEDS: MAGNESIUM 2GM PREMIX 50ML 50 ML IV PRN (06:07)
[2022-11-29] MEDS: ENOXAPARIN SODIUM 40 MG/0.4 ML SYRINGE SQ SCH (09:00)
[2022-11-29] MEDS: LACTULOSE 20 GM/30 ML UDCUP PO SCH ×2 (09:00→20:47)
[2022-11-29] MEDS: FLUCONAZOLE 400 MG/NS 200 ML 200 ML IV SCH (09:01)
[2022-11-29] MEDS: LUBIPROSTONE 24 MCG CAP PO SCH ×2 (09:01→16:40)
[2022-11-29] MEDS: DOXYCYCLINE 100MG+NS 250ML IV SCH ×2 (09:01→20:46)
[2022-11-29] MEDS: FAMOTIDINE 20MG TAB PO SCH ×2 (09:01→20:46)
[2022-11-29] MEDS: WATER IV SCH ×2 (12:23→23:45)
[2022-11-29] MEDS: DEXTROSE 5% IV SCH ×2 (12:23→23:45)
[2022-11-29] MEDS: BACTRIM IV SCH ×2 (12:23→23:45)
[2022-11-29] MEDS: GUAIFENESIN-DM 200/20 MG 10 ML PO PRN (18:18)
[2022-11-30] VITALS (9 sets, daily range): BP systolic 104–141; BP diastolic 43–75; PULSE 92–112; RESP 17–19; O2SAT 93–94
[2022-11-30] MEDS: ZOSYN 3.375GM +NS 50ML IVPB SCH ×2 (00:10→06:46)
[2022-11-30 06:46] LABS: BASOPHILS # (AUTO) 0.01 K/uL (0.00-0.20); BASOPHILS % (AUTO) 0.2 % (0.0-5.0); EOSINOPHILS # (AUTO) 0.06 K/uL (0.00-0.70); HEMATOCRIT 30.2 % (36-48); IMMATURE GRANULOCYTE ABSOLUTE 0.03 K/uL (0-1); LYMPHOCYTES # (AUTO) 0.3 K/uL (1.0-4.8); LYMPHOCYTES % (AUTO) 4.5 % (21.0-51.0); MEAN CORPUSCULAR HEMOGLOBIN 27.4 pg (27.0-33.0); MEAN CORPUSCULAR HGB CONC 32.1 g/dL (32.0-36.0); MEAN CORPUSCULAR VOLUME 85.3 fL (79-99); MONOCYTES # (AUTO) 0.5 K/uL (0.1-1.0); MONOCYTES % (AUTO) 8.2 % (3.0-13.0); NEUTROPHILS # (AUTO) 4.9 K/uL (1.8-7.7); NEUTROPHILS % (AUTO) 85.6 % (40.0-77.0); PLATELET COUNT (AUTO) 90 K/uL (130-400); RED BLOOD CELL COUNT(AUTO) 3.54 MIL/uL (4.00-5.50); RED CELL DISTRIBUTION WIDTH 15.6 % (11.0-15.5); WHITE BLOOD COUNT (AUTO) 5.8 K/uL (4.8-10.8)
[2022-11-30] MEDS: INSULIN HUMULIN R 100 UNIT/ML 3ML SQ SCH ×4 (06:55→21:00)
[2022-11-30 06:56] LABS: CREATININE 0.7 mg/dL (0.5-1.5); MAGNESIUM 1.9 mg/dL (1.80-2.40); POTASSIUM 4.6 mmol/L (3.5-5.1)
[2022-11-30] MEDS: ENOXAPARIN SODIUM 40 MG/0.4 ML SYRINGE SQ SCH (09:00)
[2022-11-30] MEDS: LACTULOSE 20 GM/30 ML UDCUP PO SCH ×2 (09:00→21:00)
[2022-11-30] MEDS: ACETAMINOPHEN 325 MG TAB PO PRN (10:45)
[2022-11-30] MEDS: FAMOTIDINE 20MG TAB PO SCH ×2 (10:45→21:54)
[2022-11-30] MEDS: FLUCONAZOLE 400 MG/NS 200 ML 200 ML IV SCH (10:45)
[2022-11-30] MEDS: DOXYCYCLINE 100MG+NS 250ML IV SCH ×2 (10:45→21:54)
[2022-11-30] MEDS: LUBIPROSTONE 24 MCG CAP PO SCH ×2 (10:49→18:01)
[2022-11-30] MEDS ORDERED: VANCOMYCIN PROTOCOL PER PHARMACY IV SCH (14:00)
[2022-11-30] MEDS ORDERED: COMPOUND IV MISC 1 EACH IVSOLN MISC PRN (14:30)
[2022-11-30] MEDS ORDERED: VANCOMYCIN 2GM/500 ML BAG 500 ML IV ONE (14:30)
[2022-11-30] MEDS: MEROPENEM 1 GM in 0.9%NACL 100ML 100 ML IVPB SCH ×2 (14:53→22:59)
[2022-11-30] MEDS: SULFAMETHOX-TMP DS 800/160 TAB PO SCH (15:19)
[2022-12-01] MEDS: VANCOMYCIN 1.5 GM/250 ML BAG 250 ML IV SCH ×2 (02:27→15:35)
[2022-12-01 04:00] VITALS: BP 108/62; PULSE 100; RESP 19
[2022-12-01 06:39] LABS: BASOPHILS # (AUTO) 0.01 K/uL (0.00-0.20); BASOPHILS % (AUTO) 0.2 % (0.0-5.0); EOSINOPHILS # (AUTO) 0.08 K/uL (0.00-0.70); HEMATOCRIT 27.4 % (36-48); IMMATURE GRANULOCYTE ABSOLUTE 0.02 K/uL (0-1); LYMPHOCYTES # (AUTO) 0.3 K/uL (1.0-4.8); LYMPHOCYTES % (AUTO) 8.4 % (21.0-51.0); MEAN CORPUSCULAR HEMOGLOBIN 27.7 pg (27.0-33.0); MEAN CORPUSCULAR HGB CONC 32.1 g/dL (32.0-36.0); MEAN CORPUSCULAR VOLUME 86.2 fL (79-99); MONOCYTES # (AUTO) 0.6 K/uL (0.1-1.0); MONOCYTES % (AUTO) 14.1 % (3.0-13.0); NEUTROPHILS % (AUTO) 74.8 % (40.0-77.0); PLATELET COUNT (AUTO) 126 K/uL (130-400); RED BLOOD CELL COUNT(AUTO) 3.18 MIL/uL (4.00-5.50); RED CELL DISTRIBUTION WIDTH 15.8 % (11.0-15.5)
[2022-12-01 06:44] LABS: CREATININE 0.7 mg/dL (0.5-1.5); MAGNESIUM 1.9 mg/dL (1.80-2.40)
[2022-12-01] MEDS: INSULIN HUMULIN R 100 UNIT/ML 3ML SQ SCH ×4 (06:47→21:00)
[2022-12-01 08:00] VITALS: BP 114/67; PULSE 97; RESP 17; O2SAT 98
[2022-12-01] MEDS: LUBIPROSTONE 24 MCG CAP PO SCH ×2 (08:00→17:00)
[2022-12-01] MEDS: MEROPENEM 1 GM in 0.9%NACL 100ML 100 ML IVPB SCH ×3 (08:24→22:53)
[2022-12-01] MEDS: ENOXAPARIN SODIUM 40 MG/0.4 ML SYRINGE SQ SCH (09:00)
[2022-12-01] MEDS: LACTULOSE 20 GM/30 ML UDCUP PO SCH ×2 (09:00→20:08)
[2022-12-01] MEDS: DOXYCYCLINE 100MG+NS 250ML IV SCH ×2 (09:40→20:08)
[2022-12-01] MEDS: FLUCONAZOLE 400 MG/NS 200 ML 200 ML IV SCH (09:40)
[2022-12-01] MEDS: FAMOTIDINE 20MG TAB PO SCH ×2 (09:40→20:07)
[2022-12-01] MEDS: SULFAMETHOX-TMP DS 800/160 TAB PO SCH (09:40)
[2022-12-01 11:54] VITALS: BP 126/69; PULSE 101; RESP 17
[2022-12-01 16:00] VITALS: BP 127/69; PULSE 105; RESP 17
[2022-12-01 16:10] LABS: ROCKY MT SPOTTED FEVER IGG <1:64 (Neg:<1:64); ROCKY MT SPOTTED FEVER IGM <1:64 (Neg:<1:64); TYPHUS FEVER AB IGG <1:64 (Neg:<1:64); TYPHUS FEVER AB IGM <1:64 (Neg:<1:64)
[2022-12-01 20:00] VITALS: BP 113/58; PULSE 105; RESP 20; O2SAT 98
[2022-12-01] MEDS: ACETAMINOPHEN 325 MG TAB PO PRN (20:08)
[2022-12-02] VITALS (9 sets, daily range): BP systolic 97–135; BP diastolic 60–71; PULSE 89–113; RESP 18–22; O2SAT 98
[2022-12-02] MEDS: VANCOMYCIN 1.5 GM/250 ML BAG 250 ML IV SCH ×2 (03:18→16:03)
[2022-12-02 05:40] LABS: BASOPHILS # (AUTO) 0.02 K/uL (0.00-0.20); BASOPHILS % (AUTO) 0.5 % (0.0-5.0); EOSINOPHILS # (AUTO) 0.08 K/uL (0.00-0.70); EOSINOPHILS % (AUTO) 1.9 % (0.0-8.0); HEMATOCRIT 29.8 % (36-48); IMMATURE GRANULOCYTE ABSOLUTE 0.03 K/uL (0-1); LYMPHOCYTES # (AUTO) 0.3 K/uL (1.0-4.8); LYMPHOCYTES % (AUTO) 7.2 % (21.0-51.0); MEAN CORPUSCULAR HEMOGLOBIN 27.2 pg (27.0-33.0); MEAN CORPUSCULAR HGB CONC 31.5 g/dL (32.0-36.0); MEAN CORPUSCULAR VOLUME 86.4 fL (79-99); MONOCYTES # (AUTO) 0.4 K/uL (0.1-1.0); MONOCYTES % (AUTO) 10.6 % (3.0-13.0); NEUTROPHILS # (AUTO) 3.3 K/uL (1.8-7.7); NEUTROPHILS % (AUTO) 79.1 % (40.0-77.0); PLATELET COUNT (AUTO) 117 K/uL (130-400); RED BLOOD CELL COUNT(AUTO) 3.45 MIL/uL (4.00-5.50); RED CELL DISTRIBUTION WIDTH 15.7 % (11.0-15.5); WHITE BLOOD COUNT (AUTO) 4.1 K/uL (4.8-10.8)
[2022-12-02 05:53] LABS: ALBUMIN 1.4 g/dL (3.5-5.0); BILIRUBIN,TOTAL 0.4 mg/dL (0.2-1.0); CREATININE 0.7 mg/dL (0.5-1.5); MAGNESIUM 1.7 mg/dL (1.80-2.40); PHOSPHORUS 3.3 mg/dL (2.5-4.9); POTASSIUM 4.3 mmol/L (3.5-5.1); TOTAL PROTEIN, SERUM 6.3 g/dL (6.0-8.3)
[2022-12-02] MEDS: MEROPENEM 1 GM in 0.9%NACL 100ML 100 ML IVPB SCH ×3 (06:38→20:57)
[2022-12-02] MEDS: INSULIN HUMULIN R 100 UNIT/ML 3ML SQ SCH ×2 (06:42→11:30)
[2022-12-02] MEDS: LUBIPROSTONE 24 MCG CAP PO SCH ×2 (08:00→17:00)
[2022-12-02] MEDS: SULFAMETHOX-TMP DS 800/160 TAB PO SCH (08:48)
[2022-12-02] MEDS: DOXYCYCLINE 100MG+NS 250ML IV SCH ×2 (08:48→20:56)
[2022-12-02] MEDS: FAMOTIDINE 20MG TAB PO SCH ×2 (08:48→20:56)
[2022-12-02] MEDS: FLUCONAZOLE 400 MG/NS 200 ML 200 ML IV SCH (08:48)
[2022-12-02] MEDS: ACETAMINOPHEN 325 MG TAB PO PRN ×2 (08:49→20:57)
[2022-12-02] MEDS: LACTULOSE 20 GM/30 ML UDCUP PO SCH ×2 (09:00→20:56)
[2022-12-02 16:11] LABS: ASPERGILLUS FLAVUS AB QUAN-DID Negative (Neg:<1:1); ASPERGILLUS FUMIGATUS AB-DID Negative (Neg:<1:1); BLASTOMYCES ABS QN DID Negative (Neg:<1:1)
[2022-12-03] VITALS (7 sets, daily range): BP systolic 111–127; BP diastolic 56–67; PULSE 95–111; RESP 19–24; O2SAT 98
[2022-12-03] MEDS: VANCOMYCIN 1.5 GM/250 ML BAG 250 ML IV SCH ×2 (03:02→15:22)
[2022-12-03] MEDS: MEROPENEM 1 GM in 0.9%NACL 100ML 100 ML IVPB SCH ×3 (05:21→21:24)
[2022-12-03] MEDS: LUBIPROSTONE 24 MCG CAP PO SCH (08:00)
[2022-12-03] MEDS: LACTULOSE 20 GM/30 ML UDCUP PO SCH (09:00)
[2022-12-03] MEDS: FAMOTIDINE 20MG TAB PO SCH ×2 (09:30→21:22)
[2022-12-03] MEDS: SULFAMETHOX-TMP DS 800/160 TAB PO SCH (09:30)
[2022-12-03] MEDS: FLUCONAZOLE 400 MG/NS 200 ML 200 ML IV SCH (09:30)
[2022-12-03] MEDS: DOXYCYCLINE 100MG+NS 250ML IV SCH ×2 (09:30→21:22)
[2022-12-03 14:13] LABS: RHEUMATOID ARTHRITIS FACTOR <10.0 IU/mL (<14.0)
[2022-12-03] MEDS ORDERED: LACTULOSE 20 GM/30 ML UDCUP PO PRN (18:30)
[2022-12-03] MEDS: ACETAMINOPHEN 325 MG TAB PO PRN (23:49)
[2022-12-04] VITALS (8 sets, daily range): BP systolic 105–135; BP diastolic 52–77; PULSE 88–110; RESP 18–24; O2SAT 98–100
[2022-12-04] MEDS: VANCOMYCIN 1.5 GM/250 ML BAG 250 ML IV SCH ×2 (02:38→15:29)
[2022-12-04] MEDS: MEROPENEM 1 GM in 0.9%NACL 100ML 100 ML IVPB SCH ×3 (06:28→22:06)
[2022-12-04] MEDS: FAMOTIDINE 20MG TAB PO SCH ×2 (08:26→20:28)
[2022-12-04] MEDS: SULFAMETHOX-TMP DS 800/160 TAB PO SCH (08:26)
[2022-12-04] MEDS: FLUCONAZOLE 400 MG/NS 200 ML 200 ML IV SCH (08:27)
[2022-12-04] MEDS: DOXYCYCLINE 100MG+NS 250ML IV SCH ×2 (08:27→20:28)
[2022-12-04] MEDS: ACETAMINOPHEN 325 MG TAB PO PRN (16:14)
[2022-12-05] VITALS: BP 127/60; PULSE 99; RESP 20
[2022-12-05] MEDS: VANCOMYCIN 1.5 GM/250 ML BAG 250 ML IV SCH ×2 (01:48→13:52)
[2022-12-05] MEDS: ACETAMINOPHEN 325 MG TAB PO PRN ×2 (03:26→20:26)
[2022-12-05 04:00] VITALS: BP 109/57; PULSE 100; RESP 20
[2022-12-05 05:37] LABS: BASOPHILS # (AUTO) 0.02 K/uL (0.00-0.20); BASOPHILS % (AUTO) 0.6 % (0.0-5.0); EOSINOPHILS # (AUTO) 0.08 K/uL (0.00-0.70); EOSINOPHILS % (AUTO) 2.5 % (0.0-8.0); HEMATOCRIT 27.2 % (36-48); IMMATURE GRANULOCYTE ABSOLUTE 0.02 K/uL (0-1); LYMPHOCYTES # (AUTO) 0.2 K/uL (1.0-4.8); LYMPHOCYTES % (AUTO) 6.5 % (21.0-51.0); MEAN CORPUSCULAR HEMOGLOBIN 26.7 pg (27.0-33.0); MEAN CORPUSCULAR HGB CONC 30.1 g/dL (32.0-36.0); MEAN CORPUSCULAR VOLUME 88.6 fL (79-99); MONOCYTES # (AUTO) 0.3 K/uL (0.1-1.0); MONOCYTES % (AUTO) 10.2 % (3.0-13.0); NEUTROPHILS # (AUTO) 2.6 K/uL (1.8-7.7); NEUTROPHILS % (AUTO) 79.6 % (40.0-77.0); PLATELET COUNT (AUTO) 105 K/uL (130-400); RED BLOOD CELL COUNT(AUTO) 3.07 MIL/uL (4.00-5.50); RED CELL DISTRIBUTION WIDTH 15.2 % (11.0-15.5); WHITE BLOOD COUNT (AUTO) 3.2 K/uL (4.8-10.8)
[2022-12-05 05:48] LABS: ALBUMIN 1.3 g/dL (3.5-5.0); BILIRUBIN,TOTAL 0.3 mg/dL (0.2-1.0); CREATININE 0.7 mg/dL (0.5-1.5); MAGNESIUM 1.7 mg/dL (1.80-2.40); PHOSPHORUS 3.3 mg/dL (2.5-4.9); POTASSIUM 3.7 mmol/L (3.5-5.1); TOTAL PROTEIN, SERUM 5.9 g/dL (6.0-8.3)
[2022-12-05] MEDS: MEROPENEM 1 GM in 0.9%NACL 100ML 100 ML IVPB SCH ×3 (06:00→22:37)
[2022-12-05 07:37] VITALS: BP 107/57; PULSE 89; RESP 19
[2022-12-05 08:16] LABS: HERPES SIMPLEX VIRUS-1 BY PCR Negative (Negative); HERPES SIMPLEX VIRUS-2 BY PCR Negative (Negative)
[2022-12-05] MEDS: FLUCONAZOLE 400 MG/NS 200 ML 200 ML IV SCH (09:48)
[2022-12-05] MEDS: FAMOTIDINE 20MG TAB PO SCH ×2 (09:48→20:25)
[2022-12-05] MEDS: SULFAMETHOX-TMP DS 800/160 TAB PO SCH (09:48)
[2022-12-05] MEDS: DOXYCYCLINE 100MG+NS 250ML IV SCH ×2 (11:01→20:25)
[2022-12-05 11:44] VITALS: BP 112/67; PULSE 92; RESP 19
[2022-12-05 15:14] LABS: ATYPICAL P-ANCA AB <1:20 titer (Neg:<1:20); CYTOPLASMIC (C-ANCA) AB, IGG <1:20 titer (Neg:<1:20)
[2022-12-05 16:00] VITALS: BP 122/57; PULSE 107; RESP 19
[2022-12-05 20:00] VITALS: BP 110/68; PULSE 107; PULSE 71; RESP 20
[2022-12-06] VITALS: BP 106/58; PULSE 86; RESP 20
[2022-12-06] MEDS: VANCOMYCIN 1.5 GM/250 ML BAG 250 ML IV SCH ×2 (02:07→15:58)
[2022-12-06 04:00] VITALS: BP 96/58; PULSE 85; RESP 20
[2022-12-06 05:32] LABS: EOSINOPHILS # (AUTO) 0.07 K/uL (0.00-0.70); EOSINOPHILS % (AUTO) 2.6 % (0.0-8.0); HEMATOCRIT 29.5 % (36-48); IMMATURE GRANULOCYTE ABSOLUTE 0.01 K/uL (0-1); LYMPHOCYTES # (AUTO) 0.3 K/uL (1.0-4.8); LYMPHOCYTES % (AUTO) 9.7 % (21.0-51.0); MEAN CORPUSCULAR HEMOGLOBIN 27.1 pg (27.0-33.0); MEAN CORPUSCULAR HGB CONC 30.2 g/dL (32.0-36.0); MEAN CORPUSCULAR VOLUME 89.9 fL (79-99); MONOCYTES # (AUTO) 0.4 K/uL (0.1-1.0); MONOCYTES % (AUTO) 14.5 % (3.0-13.0); NEUTROPHILS % (AUTO) 72.8 % (40.0-77.0); PLATELET COUNT (AUTO) 83 K/uL (130-400); RED BLOOD CELL COUNT(AUTO) 3.28 MIL/uL (4.00-5.50); RED CELL DISTRIBUTION WIDTH 15.2 % (11.0-15.5); WHITE BLOOD COUNT (AUTO) 2.7 K/uL (4.8-10.8)
[2022-12-06] MEDS: MEROPENEM 1 GM in 0.9%NACL 100ML 100 ML IVPB SCH ×3 (06:10→22:20)
[2022-12-06 06:19] LABS: ALBUMIN 1.3 g/dL (3.5-5.0); BILIRUBIN,TOTAL 0.4 mg/dL (0.2-1.0); CREATININE 0.7 mg/dL (0.5-1.5); POTASSIUM 4.4 mmol/L (3.5-5.1); TOTAL PROTEIN, SERUM 6.1 g/dL (6.0-8.3)
[2022-12-06 07:08] LABS: BAND NEUTROPHILS % (MANUAL) 2 % (0-2); EOSINOPHILS % (MANUAL) 1 % (1-6); LYMPHOCYTES % (MANUAL) 4 % (22-44); MAN.DIFF COMMENT-IMPRESSION MANUAL DIFFERENTIAL; MONOCYTES % (MANUAL) 8 % (2-9); PLATELET MORPHOLOGY COMMENT DECREASED; SEGMENTED NEUTROPHILS % 85 % (40-70); TOTAL CELLS COUNTED 100
[2022-12-06 08:00] VITALS: BP 130/64; PULSE 100; RESP 20
[2022-12-06] MEDS: BUPROPION HCL 150 MG TABLET.SA PO SCH (09:54)
[2022-12-06] MEDS: FLUCONAZOLE 400 MG/NS 200 ML 200 ML IV SCH (09:54)
[2022-12-06] MEDS: SULFAMETHOX-TMP DS 800/160 TAB PO SCH (09:54)
[2022-12-06] MEDS: DOXYCYCLINE 100MG+NS 250ML IV SCH ×2 (09:54→21:05)
[2022-12-06] MEDS: SPIRONOLACTONE 25 MG TAB PO SCH (09:54)
[2022-12-06] MEDS: FAMOTIDINE 20MG TAB PO SCH ×2 (09:54→21:06)
[2022-12-06 12:00] VITALS: BP 110/45; PULSE 78; RESP 20
[2022-12-06] MEDS: SUCRALFATE 1 GM TABLET PO SCH (15:16)
[2022-12-06] MEDS: ACETAMINOPHEN 325 MG TAB PO PRN (15:59)
[2022-12-06 20:00] VITALS: BP 106/59; PULSE 90; RESP 22
[2022-12-07] VITALS (7 sets, daily range): BP systolic 96–148; BP diastolic 52–65; PULSE 89–105; RESP 18–22; O2SAT 97
[2022-12-07] MEDS: VANCOMYCIN 1.5 GM/250 ML BAG 250 ML IV SCH (02:36)
[2022-12-07] MEDS: ACETAMINOPHEN 325 MG TAB PO PRN ×2 (04:06→18:30)
[2022-12-07 04:12] LABS: BASOPHILS # (AUTO) 0.01 K/uL (0.00-0.20); BASOPHILS % (AUTO) 0.3 % (0.0-5.0); EOSINOPHILS # (AUTO) 0.05 K/uL (0.00-0.70); EOSINOPHILS % (AUTO) 1.5 % (0.0-8.0); HEMATOCRIT 27.6 % (36-48); IMMATURE GRANULOCYTE ABSOLUTE 0.02 K/uL (0-1); LYMPHOCYTES # (AUTO) 0.3 K/uL (1.0-4.8); LYMPHOCYTES % (AUTO) 8.2 % (21.0-51.0); MEAN CORPUSCULAR HEMOGLOBIN 27.5 pg (27.0-33.0); MEAN CORPUSCULAR HGB CONC 31.5 g/dL (32.0-36.0); MEAN CORPUSCULAR VOLUME 87.3 fL (79-99); MONOCYTES # (AUTO) 0.4 K/uL (0.1-1.0); MONOCYTES % (AUTO) 10.9 % (3.0-13.0); NEUTROPHILS # (AUTO) 2.6 K/uL (1.8-7.7); NEUTROPHILS % (AUTO) 78.5 % (40.0-77.0); PLATELET COUNT (AUTO) 121 K/uL (130-400); RED BLOOD CELL COUNT(AUTO) 3.16 MIL/uL (4.00-5.50); RED CELL DISTRIBUTION WIDTH 14.9 % (11.0-15.5); WHITE BLOOD COUNT (AUTO) 3.3 K/uL (4.8-10.8)
[2022-12-07 04:25] LABS: ALBUMIN 1.3 g/dL (3.5-5.0); BILIRUBIN,TOTAL 0.3 mg/dL (0.2-1.0); CREATININE 0.7 mg/dL (0.5-1.5); POTASSIUM 4.5 mmol/L (3.5-5.1); TOTAL PROTEIN, SERUM 6.3 g/dL (6.0-8.3)
[2022-12-07] MEDS: MEROPENEM 1 GM in 0.9%NACL 100ML 100 ML IVPB SCH (05:54)
[2022-12-07] MEDS: SULFAMETHOX-TMP DS 800/160 TAB PO SCH (09:59)
[2022-12-07] MEDS: SPIRONOLACTONE 25 MG TAB PO SCH (09:59)
[2022-12-07] MEDS: FAMOTIDINE 20MG TAB PO SCH ×2 (09:59→20:26)
[2022-12-07] MEDS: FLUCONAZOLE 400 MG/NS 200 ML 200 ML IV SCH (09:59)
[2022-12-07] MEDS: BUPROPION HCL 150 MG TABLET.SA PO SCH (09:59)
[2022-12-07] MEDS: DOXYCYCLINE 100MG+NS 250ML IV SCH ×2 (10:00→20:26)
[2022-12-07] MEDS: SUCRALFATE 1 GM TABLET PO SCH (12:23)
[2022-12-08] VITALS (9 sets, daily range): BP systolic 92–123; BP diastolic 46–68; PULSE 82–107; RESP 17–20; O2SAT 97
[2022-12-08] MEDS: DOXYCYCLINE 100MG+NS 250ML IV SCH ×2 (08:59→22:08)
[2022-12-08] MEDS: FAMOTIDINE 20MG TAB PO SCH ×2 (08:59→22:08)
[2022-12-08] MEDS: BUPROPION HCL 150 MG TABLET.SA PO SCH (08:59)
[2022-12-08] MEDS: FLUCONAZOLE 400 MG/NS 200 ML 200 ML IV SCH (09:00)
[2022-12-08] MEDS: SULFAMETHOX-TMP DS 800/160 TAB PO SCH (09:00)
[2022-12-08] MEDS: SPIRONOLACTONE 25 MG TAB PO SCH (10:11)
[2022-12-08] MEDS: SUCRALFATE 1 GM TABLET PO SCH (11:33)
[2022-12-08] MEDS: ACETAMINOPHEN 325 MG TAB PO PRN ×2 (11:35→22:55)
[2022-12-08] MEDS: GUAIFENESIN-DM 200/20 MG 10 ML PO PRN (22:55)
[2022-12-09] VITALS (10 sets, daily range): BP systolic 91–121; BP diastolic 49–76; PULSE 93–106; RESP 18–22; TEMP 99.4; O2SAT 97–99
[2022-12-09] MEDS: FAMOTIDINE 20MG TAB PO SCH ×2 (09:57→21:28)
[2022-12-09] MEDS: SULFAMETHOX-TMP DS 800/160 TAB PO SCH (09:57)
[2022-12-09] MEDS: SPIRONOLACTONE 25 MG TAB PO SCH (09:58)
[2022-12-09] MEDS: BUPROPION HCL 150 MG TABLET.SA PO SCH (09:58)
[2022-12-09] MEDS: FLUCONAZOLE 400 MG/NS 200 ML 200 ML IV SCH (09:58)
[2022-12-09] MEDS: DOXYCYCLINE 100MG+NS 250ML IV SCH ×2 (09:58→21:28)
[2022-12-09] MEDS: SUCRALFATE 1 GM TABLET PO SCH (11:47)
[2022-12-09] MEDS: ACETAMINOPHEN 325 MG TAB PO PRN ×2 (11:54→21:38)
[2022-12-10] VITALS (7 sets, daily range): BP systolic 101–123; BP diastolic 61–72; PULSE 89–102; RESP 18–20; O2SAT 97–100
[2022-12-10] MEDS: DOXYCYCLINE 100MG+NS 250ML IV SCH ×2 (07:59→20:35)
[2022-12-10] MEDS: FAMOTIDINE 20MG TAB PO SCH ×2 (08:00→20:35)
[2022-12-10] MEDS: FLUCONAZOLE 400 MG/NS 200 ML 200 ML IV SCH (08:00)
[2022-12-10] MEDS: SULFAMETHOX-TMP DS 800/160 TAB PO SCH (08:00)
[2022-12-10] MEDS: BUPROPION HCL 150 MG TABLET.SA PO SCH (08:00)
[2022-12-10] MEDS: SPIRONOLACTONE 25 MG TAB PO SCH (08:00)
[2022-12-10] MEDS: SUCRALFATE 1 GM TABLET PO SCH (11:26)
[2022-12-11] MEDS ORDERED: SODIUM CHLORIDE 3% FOR INHALATION 4 ML/AMP VIAL.NEB IH ONE (06:15)
[2022-12-11 09:20] VITALS: O2SAT 99
[2022-12-11 09:35] VITALS: O2SAT 95
[2022-12-11] MEDS: SPIRONOLACTONE 25 MG TAB PO SCH (09:35)
[2022-12-11] MEDS: BUPROPION HCL 150 MG TABLET.SA PO SCH (09:35)
[2022-12-11] MEDS: FLUCONAZOLE 400 MG/NS 200 ML 200 ML IV SCH (09:35)
[2022-12-11] MEDS: SULFAMETHOX-TMP DS 800/160 TAB PO SCH (09:35)
[2022-12-11] MEDS: FAMOTIDINE 20MG TAB PO SCH ×2 (09:35→20:32)
[2022-12-11] MEDS: SUCRALFATE 1 GM TABLET PO SCH (11:40)
[2022-12-11 14:44] LABS: BASOPHILS # (AUTO) 0.01 K/uL (0.00-0.20); BASOPHILS % (AUTO) 0.3 % (0.0-5.0); EOSINOPHILS # (AUTO) 0.05 K/uL (0.00-0.70); EOSINOPHILS % (AUTO) 1.3 % (0.0-8.0); HEMATOCRIT 27.1 % (36-48); IMMATURE GRANULOCYTE ABSOLUTE 0.02 K/uL (0-1); LYMPHOCYTES # (AUTO) 0.3 K/uL (1.0-4.8); LYMPHOCYTES % (AUTO) 8.7 % (21.0-51.0); MEAN CORPUSCULAR HEMOGLOBIN 26.7 pg (27.0-33.0); MEAN CORPUSCULAR HGB CONC 30.6 g/dL (32.0-36.0); MEAN CORPUSCULAR VOLUME 87.1 fL (79-99); MONOCYTES # (AUTO) 0.5 K/uL (0.1-1.0); MONOCYTES % (AUTO) 13.2 % (3.0-13.0); NEUTROPHILS # (AUTO) 2.9 K/uL (1.8-7.7); PLATELET COUNT (AUTO) 123 K/uL (130-400); RED BLOOD CELL COUNT(AUTO) 3.11 MIL/uL (4.00-5.50); RED CELL DISTRIBUTION WIDTH 15.1 % (11.0-15.5); WHITE BLOOD COUNT (AUTO) 3.8 K/uL (4.8-10.8)
[2022-12-11 16:00] VITALS: BP 115/71; PULSE 101; RESP 16
[2022-12-11 20:00] VITALS: BP 111/70; PULSE 103; RESP 18
[2022-12-11] MEDS: ACETAMINOPHEN 325 MG TAB PO PRN (20:33)
[2022-12-11 20:45] VITALS: O2SAT 93
[2022-12-11 23:15] LABS: CREATININE 0.7 mg/dL (0.5-1.5); POTASSIUM 4.4 mmol/L (3.5-5.1)
[2022-12-12] VITALS (8 sets, daily range): BP systolic 98–136; BP diastolic 55–78; PULSE 80–112; RESP 18–22; O2SAT 97
[2022-12-12 04:17] LABS: BASOPHILS # (AUTO) 0.01 K/uL (0.00-0.20); BASOPHILS % (AUTO) 0.3 % (0.0-5.0); EOSINOPHILS # (AUTO) 0.07 K/uL (0.00-0.70); EOSINOPHILS % (AUTO) 2.2 % (0.0-8.0); HEMATOCRIT 29.1 % (36-48); IMMATURE GRANULOCYTE ABSOLUTE 0.02 K/uL (0-1); LYMPHOCYTES # (AUTO) 0.3 K/uL (1.0-4.8); LYMPHOCYTES % (AUTO) 8.6 % (21.0-51.0); MEAN CORPUSCULAR HEMOGLOBIN 26.9 pg (27.0-33.0); MEAN CORPUSCULAR HGB CONC 30.9 g/dL (32.0-36.0); MEAN CORPUSCULAR VOLUME 87.1 fL (79-99); MONOCYTES # (AUTO) 0.5 K/uL (0.1-1.0); MONOCYTES % (AUTO) 14.9 % (3.0-13.0); NEUTROPHILS # (AUTO) 2.3 K/uL (1.8-7.7); NEUTROPHILS % (AUTO) 73.4 % (40.0-77.0); PLATELET COUNT (AUTO) 111 K/uL (130-400); RED BLOOD CELL COUNT(AUTO) 3.34 MIL/uL (4.00-5.50); RED CELL DISTRIBUTION WIDTH 15.1 % (11.0-15.5); WHITE BLOOD COUNT (AUTO) 3.2 K/uL (4.8-10.8)
[2022-12-12 04:26] LABS: CREATININE 0.7 mg/dL (0.5-1.5); POTASSIUM 4.6 mmol/L (3.5-5.1)
[2022-12-12] MEDS: BUPROPION HCL 150 MG TABLET.SA PO SCH (10:22)
[2022-12-12] MEDS: SPIRONOLACTONE 25 MG TAB PO SCH (10:22)
[2022-12-12] MEDS: FAMOTIDINE 20MG TAB PO SCH ×2 (10:22→19:42)
[2022-12-12] MEDS: FLUCONAZOLE 400 MG/NS 200 ML 200 ML IV SCH (10:22)
[2022-12-12] MEDS: SULFAMETHOX-TMP DS 800/160 TAB PO SCH (10:22)
[2022-12-12] MEDS: SUCRALFATE 1 GM TABLET PO SCH (13:53)
[2022-12-12] MEDS: ACETAMINOPHEN 325 MG TAB PO PRN (19:43)
[2022-12-13 03:00] VITALS: BP 99/57; PULSE 91; RESP 18
[2022-12-13 08:00] VITALS: O2SAT 96
[2022-12-13 08:28] VITALS: BP 97/60; PULSE 95; RESP 20
[2022-12-13] MEDS: FLUCONAZOLE 400 MG/NS 200 ML 200 ML IV SCH (09:08)
[2022-12-13] MEDS: SPIRONOLACTONE 25 MG TAB PO SCH (09:08)
[2022-12-13] MEDS: FAMOTIDINE 20MG TAB PO SCH ×2 (09:08→20:32)
[2022-12-13] MEDS: SULFAMETHOX-TMP DS 800/160 TAB PO SCH (09:08)
[2022-12-13] MEDS: BUPROPION HCL 150 MG TABLET.SA PO SCH (09:08)
[2022-12-13 12:20] VITALS: BP 97/62; PULSE 93; RESP 20
[2022-12-13] MEDS: SUCRALFATE 1 GM TABLET PO SCH (12:28)
[2022-12-13 16:00] VITALS: BP 113/75; PULSE 101; RESP 22
[2022-12-13 20:00] VITALS: BP 107/54; PULSE 99; RESP 16
[2022-12-13] MEDS: ACETAMINOPHEN 325 MG TAB PO PRN (20:35)
[2022-12-14] VITALS: BP 108/71; PULSE 86; RESP 16
[2022-12-14 04:00] VITALS: BP 107/61; PULSE 84; RESP 16
[2022-12-14 07:55] VITALS: BP 114/69; PULSE 90; RESP 21
[2022-12-14] MEDS: FLUCONAZOLE 400 MG/NS 200 ML 200 ML IV SCH (08:49)
[2022-12-14] MEDS: BUPROPION HCL 150 MG TABLET.SA PO SCH (08:51)
[2022-12-14] MEDS: SULFAMETHOX-TMP DS 800/160 TAB PO SCH (08:51)
[2022-12-14] MEDS: SPIRONOLACTONE 25 MG TAB PO SCH (08:51)
[2022-12-14] MEDS: FAMOTIDINE 20MG TAB PO SCH ×2 (08:52→20:14)
[2022-12-14] MEDS: ACETAMINOPHEN 325 MG TAB PO PRN ×2 (09:05→20:16)
[2022-12-14 11:56] VITALS: BP 99/54; PULSE 90; RESP 21
[2022-12-14 15:20] VITALS: BP 132/48; PULSE 81; RESP 21
[2022-12-14] MEDS: SUCRALFATE 1 GM TABLET PO SCH (17:07)
[2022-12-14 20:00] VITALS: BP 128/74; PULSE 105; RESP 17; O2SAT 98
[2022-12-15] VITALS (7 sets, daily range): BP systolic 92–109; BP diastolic 59–75; PULSE 93–103; RESP 17–20; O2SAT 96
[2022-12-15] MEDS: FLUCONAZOLE 400 MG/NS 200 ML 200 ML IV SCH (08:36)
[2022-12-15] MEDS: BUPROPION HCL 150 MG TABLET.SA PO SCH (08:37)
[2022-12-15] MEDS: FAMOTIDINE 20MG TAB PO SCH ×2 (08:37→20:00)
[2022-12-15] MEDS: SULFAMETHOX-TMP DS 800/160 TAB PO SCH (08:37)
[2022-12-15] MEDS: SPIRONOLACTONE 25 MG TAB PO SCH (08:37)
[2022-12-15] MEDS: SUCRALFATE 1 GM TABLET PO SCH (13:20)
[2022-12-15] MEDS: ACETAMINOPHEN 325 MG TAB PO PRN (20:02)
[2022-12-16 00:13] VITALS: BP 103/62; PULSE 96; RESP 19
[2022-12-16 03:54] VITALS: BP 120/71; PULSE 94; RESP 20
[2022-12-16 07:53] VITALS: O2SAT 95
[2022-12-16 08:00] VITALS: BP 102/59; PULSE 92; RESP 16
[2022-12-16] MEDS: FAMOTIDINE 20MG TAB PO SCH (08:34)
[2022-12-16] MEDS: SPIRONOLACTONE 25 MG TAB PO SCH (08:34)
[2022-12-16] MEDS: FLUCONAZOLE 400 MG/NS 200 ML 200 ML IV SCH (08:34)
[2022-12-16] MEDS: SULFAMETHOX-TMP DS 800/160 TAB PO SCH (08:34)
[2022-12-16] MEDS: BUPROPION HCL 150 MG TABLET.SA PO SCH (08:34)
[2022-12-16 12:00] VITALS: BP 101/61; PULSE 92; RESP 16
[2022-12-16] MEDS: SUCRALFATE 1 GM TABLET PO SCH (12:10)
[2022-12-16] MEDS ORDERED: FLUC200T12 PO (14:38)
[2022-12-16] MEDS ORDERED: Sulfamethox-Tmp Ds 800/160 Tab PO (14:38)
== END 2022-12-16 15:35 | disposition home or self-care (01) | DRG 890 ==
LOC: EDH 15:14 → EDHIP 15:15 → 2AH 21:22 → 3DH 11-29 23:33 → 4CH 12-09 16:41
PROVIDERS: ADMIT Internal Medicine; ATTEND Internal Medicine
PROC: 0W9930Z Drainage of Right Pleural Cavity with Drainage Device, Percutaneous Approach (ICD-10-PCS; principal; 2022-11-23)
PROC: 02HV33Z Insertion of Infusion Device into Superior Vena Cava, Percutaneous Approach (ICD-10-PCS; 2022-11-26)
DX: B20 Human immunodeficiency virus [HIV] disease (principal); J96.01 Acute respiratory failure with hypoxia; A41.9 Sepsis, unspecified organism; E43 Unspecified severe protein-calorie malnutrition; R64 Cachexia; J18.9 Pneumonia, unspecified organism; D69.6 Thrombocytopenia, unspecified; E87.3 Alkalosis; E87.1 Hypo-osmolality and hyponatremia; K74.60 Unspecified cirrhosis of liver; E66.01 Morbid (severe) obesity due to excess calories; Z68.42 Body mass index [BMI] 45.0-49.9, adult; B19.20 Unspecified viral hepatitis C without hepatic coma; I25.10 Atherosclerotic heart disease of native coronary artery without angina pectoris; J06.9 Acute upper respiratory infection, unspecified; E11.65 Type 2 diabetes mellitus with hyperglycemia; E87.6 Hypokalemia; F32.A Depression, unspecified; I10 Essential (primary) hypertension; R16.1 Splenomegaly, not elsewhere classified; J91.8 Pleural effusion in other conditions classified elsewhere; J98.11 Atelectasis; K76.0 Fatty (change of) liver, not elsewhere classified; Z20.822 Contact with and (suspected) exposure to COVID-19; Z81.8 Family history of other mental and behavioral disorders; Z83.3 Family history of diabetes mellitus; Z90.710 Acquired absence of both cervix and uterus; Z90.49 Acquired absence of other specified parts of digestive tract
CPT/HCPCS: 36415; 36600; 71045; 71250; 71260; 71270; 76700; 80048; 80053; 80074; 80202; 81001; 82140; 82270; 82435; 82607; 82728; 82746; 82803; 82945; 82947; 82948; 83036; 83540; 83550; 83605; 83615; 83735; 83880; 83986; 84100; 84132; 84145; 84155; 84157; 84295; 84484; 85007; 85018; 85025; 85027; 85045; 85610; 85730; 86038; 86200; 86215; 86235; 86255; 86308; 86359; 86360; 86361; 86431; 86606; 86612; 86644; 86645; 86738; 86757; 86850; 86900; 86901; 87040; 87071; 87088; 87116; 87205; 87206; 87522; 87529; 87635; 87804; 87880; 87902; 88108; 89051; 93005; 94640; 94664; C1729; C1894; C9803; G0378; J0456; J0696; J1450; J1756; J1940; J2185; J2270; J2405; J2543; J3475; J3490; J7050; J7070; Q9967; 87496; J3370

== ENCOUNTER 2023-02-20 20:08 | Emergency (ER) | payer MEDICAID ==
[~2023-02-20] VITALS: Ht 162.6 cm; Wt 104.3 kg
[~2023-02-20 20:08] MED LIST changes: -ACET-66 PO; +AVAT20TA PO; -AZAT50TA PO; +BUPR-317 PO; -BUPR100T13 PO; +DICY20TA3 PO; +DOLU1TAB2 PO; +FERS325 PO; +FLUC200T12 PO; -FLUT16H NASAL; -HYDR25TA PO; +MV-M1TAB66 PO; -NAPR500T6 PO; +SPIR25TA6 PO; +SUCR1TAB2 PO; +Sulfamethox-Tmp Ds 800/160 Tab PO; +VITA1TAB22 PO; +[UNRECOGNIZED DRUG - CODE] PO
[2023-02-20 21:12] LABS: APPEARANCE,URINE CLEAR (CLEAR); BILIRUBIN,URINE NEGATIVE (NEGATIVE); COLOR,URINE YELLOW (YELLOW); GLUCOSE, URINE (UA) NEGATIVE (NEGATIVE); KETONES,URINE 5 mg/dL (NEGATIVE); LEUKOCYTE ESTERASE ,URINE 25 Leu/uL (NEGATIVE); NITRATE,URINE NEGATIVE (NEGATIVE); OCCULT BLOOD,URINE NEGATIVE (NEGATIVE); PROTEIN,URINE 20 mg/dL (NEGATIVE)
[2023-02-20 21:15] LABS: HEMATOCRIT 35.6 % (36-48); MEAN CORPUSCULAR HEMOGLOBIN 29.2 pg (27.0-33.0); MEAN CORPUSCULAR VOLUME 91.3 fL (79-99); PLATELET COUNT (AUTO) 230 K/uL (130-400); RED CELL DISTRIBUTION WIDTH 16.6 % (11.0-15.5); WHITE BLOOD COUNT (AUTO) 3.2 K/uL (4.8-10.8)
[2023-02-20 21:16] LABS: ADD UA MICROSCOPIC YES
[2023-02-20 21:16] LABS: BASOPHILS # (AUTO) 0.01 K/uL (0.00-0.20); BASOPHILS % (AUTO) 0.3 % (0.0-5.0); EOSINOPHILS # (AUTO) 0.11 K/uL (0.00-0.70); EOSINOPHILS % (AUTO) 3.4 % (0.0-8.0); IMMATURE GRANULOCYTE ABSOLUTE 0.03 K/uL (0-1); LYMPHOCYTES # (AUTO) 0.3 K/uL (1.0-4.8); LYMPHOCYTES % (AUTO) 9.7 % (21.0-51.0); MONOCYTES # (AUTO) 0.5 K/uL (0.1-1.0); MONOCYTES % (AUTO) 14.7 % (3.0-13.0); NEUTROPHILS # (AUTO) 2.3 K/uL (1.8-7.7)
[2023-02-20 21:18] LABS: BACTERIA,URINE FEW /HPF (None Seen); CALCIUM OXALATE CRYSTALS,UR FEW /LPF (None Seen); MUCUS,URINE MANY LPF (None Seen); RBC,URINE 0-1 /HPF (0-1); SQUAMOUS EPITHELIAL CELL,UR RARE /HPF (0-2)
[2023-02-20 21:42] LABS: CARBON DIOXIDE 29 mmol/L (21-32); CHLORIDE 107 mmol/L (101-111); CREATININE 0.9 mg/dL (0.5-1.5); GLOMERULAR FILTR. RATE CALC 77 mL/min (>90); GLUCOSE,RANDOM 91 mg/dL (70-105); POTASSIUM 3.9 mmol/L (3.5-5.1); SODIUM SERUM 140 mmol/L (136-145); UREA NITROGEN, BLOOD 22 mg/dL (7-18)
[2023-02-20 21:48] LABS: ALANINE AMINOTRANSFERASE 41 U/L (12-78); ALBUMIN 2.2 g/dL (3.5-5.0); AMMONIA 19 umol/L (11-32); ASPARTATE AMINOTRANSFERASE 34 U/L (10-37); BILIRUBIN,TOTAL 0.4 mg/dL (0.2-1.0); CREATINE KINASE, TOTAL 29 U/L (21-232); TOTAL PROTEIN, SERUM 7.2 g/dL (6.0-8.3)
[2023-02-20 21:49] LABS: INR 1.06 (0.85-1.15); PROTHROMBIN TIME 12.3 SEC (9.6-11.6)
[2023-02-20 21:50] LABS: PARTIAL THROMBOPLASTIN TIME 31.4 SEC (26.3-35.5)
[2023-02-20 23:05] VITALS: BP 123/66; PULSE 99; RESP 17; O2SAT 97
[2023-02-20] MEDS ORDERED: LORA10TA7 PO (23:58)
[2023-02-20] MEDS ORDERED: FURO40TA7 PO (23:58)
[2023-02-20] MEDS ORDERED: SPIR50TA PO (23:58)
[2023-02-20] MEDS ORDERED: LACT10SO5 PO (23:58)
== END 2023-02-21 00:19 | disposition home or self-care (01) ==
LOC: EDH 20:08
DX: J90 Pleural effusion, not elsewhere classified (principal); F32.A Depression, unspecified; Z79.624 Long term (current) use of inhibitors of nucleotide synthesis; Z79.899 Other long term (current) drug therapy; Z90.49 Acquired absence of other specified parts of digestive tract
CPT/HCPCS: 36415; 71045; 71250; 80053; 81001; 82140; 82550; 83735; 83880; 84484; 85025; 85610; 85730; 93005

== ENCOUNTER 2023-04-02 16:16 | Emergency (ER) | payer MEDICAID ==
[~2023-04-02] VITALS: Ht 162.6 cm; Wt 104.3 kg
[~2023-04-02 16:16] MED LIST changes: +FURO40TA7 PO; +LACT10SO5 PO; +SPIR50TA PO
[2023-04-02 17:09] LABS: BASOPHILS # (AUTO) 0.02 K/uL (0.00-0.20); BASOPHILS % (AUTO) 0.5 % (0.0-5.0); EOSINOPHILS # (AUTO) 0.08 K/uL (0.00-0.70); EOSINOPHILS % (AUTO) 2.1 % (0.0-8.0); HEMATOCRIT 36.2 % (36-48); IMMATURE GRANULOCYTE ABSOLUTE 0.02 K/uL (0-1); LYMPHOCYTES # (AUTO) 0.4 K/uL (1.0-4.8); LYMPHOCYTES % (AUTO) 10.3 % (21.0-51.0); MEAN CORPUSCULAR HEMOGLOBIN 28.7 pg (27.0-33.0); MEAN CORPUSCULAR HGB CONC 32.3 g/dL (32.0-36.0); MEAN CORPUSCULAR VOLUME 88.7 fL (79-99); MONOCYTES # (AUTO) 0.3 K/uL (0.1-1.0); MONOCYTES % (AUTO) 8.5 % (3.0-13.0); NEUTROPHILS # (AUTO) 3.1 K/uL (1.8-7.7); NEUTROPHILS % (AUTO) 78.1 % (40.0-77.0); PLATELET COUNT (AUTO) 97 K/uL (130-400); RED BLOOD CELL COUNT(AUTO) 4.08 MIL/uL (4.00-5.50); RED CELL DISTRIBUTION WIDTH 13.5 % (11.0-15.5); WHITE BLOOD COUNT (AUTO) 3.9 K/uL (4.8-10.8)
[2023-04-02 17:18] LABS: INR 1.06 (0.85-1.15); PROTHROMBIN TIME 12.2 SEC (9.6-11.6)
[2023-04-02 17:20] LABS: PARTIAL THROMBOPLASTIN TIME 33.6 SEC (26.3-35.5)
[2023-04-02 17:22] LABS: POTASSIUM 3.4 mmol/L (3.5-5.1)
[2023-04-02 17:26] LABS: ALBUMIN 2.2 g/dL (3.5-5.0); BILIRUBIN,TOTAL 0.5 mg/dL (0.2-1.0)
[2023-04-02] MEDS ORDERED: DOXY-469 PO (21:32)
[2023-04-02] MEDS ORDERED: CEFTRIAXONE 1G VIAL IM ONE (22:00)
[2023-04-02 22:08] VITALS: BP 128/72; PULSE 84; RESP 20; O2SAT 100
== END 2023-04-02 22:21 | disposition home or self-care (01) ==
LOC: EDH 16:16
DX: D72.819 Decreased white blood cell count, unspecified (principal); D63.1 Anemia in chronic kidney disease; D69.6 Thrombocytopenia, unspecified; E87.6 Hypokalemia; N18.2 Chronic kidney disease, stage 2 (mild); E88.09 Other disorders of plasma-protein metabolism, not elsewhere classified; B20 Human immunodeficiency virus [HIV] disease; R91.8 Other nonspecific abnormal finding of lung field; E66.01 Morbid (severe) obesity due to excess calories; F32.A Depression, unspecified; Z79.624 Long term (current) use of inhibitors of nucleotide synthesis; Z79.899 Other long term (current) drug therapy; Z90.49 Acquired absence of other specified parts of digestive tract; Z90.710 Acquired absence of both cervix and uterus; Z68.39 Body mass index [BMI] 39.0-39.9, adult
CPT/HCPCS: 99285; 74150; 71045; 80053; 83880; 82140; 85025; 85610; 85730; 36415; 96372; 93005; J0696

== ENCOUNTER 2023-06-01 06:03 | Day surgery (SDC) | payer MEDICAID ==
[2023-05-28 11:10] LABS: BASOPHILS # (AUTO) 0.01 K/uL (0.00-0.20); BASOPHILS % (AUTO) 0.2 % (0.0-5.0); EOSINOPHILS # (AUTO) 0.01 K/uL (0.00-0.70); EOSINOPHILS % (AUTO) 0.2 % (0.0-8.0); HEMATOCRIT 32.5 % (36-48); IMMATURE GRANULOCYTE ABSOLUTE 0.02 K/uL (0-1); LYMPHOCYTES # (AUTO) 0.3 K/uL (1.0-4.8); LYMPHOCYTES % (AUTO) 5.5 % (21.0-51.0); MEAN CORPUSCULAR HEMOGLOBIN 30.6 pg (27.0-33.0); MEAN CORPUSCULAR HGB CONC 33.8 g/dL (32.0-36.0); MEAN CORPUSCULAR VOLUME 90.5 fL (79-99); MONOCYTES # (AUTO) 0.4 K/uL (0.1-1.0); MONOCYTES % (AUTO) 7.8 % (3.0-13.0); NEUTROPHILS # (AUTO) 4.2 K/uL (1.8-7.7); NEUTROPHILS % (AUTO) 85.9 % (40.0-77.0); PLATELET COUNT (AUTO) 130 K/uL (130-400); RED BLOOD CELL COUNT(AUTO) 3.59 MIL/uL (4.00-5.50); RED CELL DISTRIBUTION WIDTH 17.8 % (11.0-15.5); WHITE BLOOD COUNT (AUTO) 4.9 K/uL (4.8-10.8)
[2023-05-28 11:17] LABS: CREATININE 0.8 mg/dL (0.5-1.0)
[2023-05-28 11:42] LABS: B-TYPE NATRIURETIC PEPTIDE 122 pg/mL (0-100)
[2023-05-28 11:47] LABS: INR 1.01 (0.85-1.15); PROTHROMBIN TIME 11.9 SEC (9.6-11.6)
[2023-05-28 11:49] LABS: PARTIAL THROMBOPLASTIN TIME 34.8 SEC (26.3-35.5)
[2023-05-28 11:56] VITALS: BP 154/75; PULSE 105; RESP 18
[2023-05-28 12:03] VITALS: BP 154/75; PULSE 105; RESP 18
[2023-05-28 12:25] LABS: ADD UA MICROSCOPIC NO; APPEARANCE,URINE CLEAR (CLEAR); BILIRUBIN,URINE NEGATIVE (NEGATIVE); COLOR,URINE LIGHT-YELLOW (YELLOW); GLUCOSE, URINE (UA) NEGATIVE (NEGATIVE); KETONES,URINE NEGATIVE (NEGATIVE); LEUKOCYTE ESTERASE ,URINE NEGATIVE Leu/uL (NEGATIVE); NITRATE,URINE NEGATIVE (NEGATIVE); OCCULT BLOOD,URINE NEGATIVE (NEGATIVE); PH,URINE 5.5 (5.0-8.0); PROTEIN,URINE NEGATIVE (NEGATIVE); UROBILINOGEN,URINE 0.2 mg/dL (0.2-1.0)
[2023-06-01] VITALS (12 sets, daily range): BP systolic 109–162; BP diastolic 61–78; PULSE 74–88; RESP 14–18
[~2023-06-01] VITALS: Ht 162.6 cm; Wt 115.1 kg
[~2023-06-01 06:03] MED LIST changes: +CETI10TA87 PO; -DICY20TA3 PO; -FERS325 PO; -FLUC200T12 PO; -FURO40TA7 PO; +HYDR25TA PO; -LACT10SO5 PO; -LORA10TA7 PO; +OMEP40CA21 PO; -SPIR25TA6 PO; -SPIR50TA PO; -SUCR1TAB2 PO; -Sulfamethox-Tmp Ds 800/160 Tab PO; -[UNRECOGNIZED DRUG - CODE] PO
[2023-06-01] MEDS: 0.9%NACL 1000ML 1,000 ML IV ONE (06:21)
[2023-06-01] MEDS ORDERED: LIDOCAINE HCL 400MG/20ML VIAL ONE (07:19)
[2023-06-01] MEDS ORDERED: MIDAZOLAM HCL 1 MG/ML 2ML VIAL ONE ×2 (07:20→08:05)
[2023-06-01] MEDS ORDERED: FENTANYL CITRATE PF 50 MCG/1 ML 2ML VIAL ONE ×2 (07:20→08:23)
[2023-06-01] MEDS ORDERED: IOHEXOL 350 MG/ML 100ML INFUS..BTL IV ONE (07:20)
[2023-06-01] MEDS ORDERED: VERAPAMIL HCL 2.5 MG/ML VIAL ONE (07:21)
[2023-06-01] MEDS ORDERED: NITROGLYCERIN 50MG VIAL ONE (07:21)
[2023-06-01] MEDS ORDERED: IOHEXOL-350 75 ML VIAL IV ONE (07:21)
[2023-06-01] MEDS ORDERED: HEPARIN 10,000 UNIT/10ML (1,000 UNIT/ML) VIAL ONE (07:21)
[2023-06-01] MEDS ORDERED: 0.9%NACL 1000ML 1,000 ML IV SCH (09:00)
[2023-06-01] MEDS ORDERED: GLUCAGON 1MG KIT 1 MG ML IM PRN (09:00)
[2023-06-01] MEDS ORDERED: DEXTROSE 50%-WATER 50 ML DISP.SYRIN IV PRN (09:00)
[2023-06-01] MEDS: ACETAMINOPHEN WITH CODEINE 1 TAB TAB PO PRN (10:11)
[2023-06-01] MEDS: KETOROLAC 15MG/ML VIAL (15MG/ML) IV ONE (13:03)
== END 2023-06-01 14:05 | disposition home or self-care (01) ==
LOC: DAH 06:03
PROVIDERS: ATTEND Student in an Organized Health Care Education/Training Program
DX: I25.10 Atherosclerotic heart disease of native coronary artery without angina pectoris (principal); I10 Essential (primary) hypertension; E66.01 Morbid (severe) obesity due to excess calories; B20 Human immunodeficiency virus [HIV] disease; F32.A Depression, unspecified; K74.69 Other cirrhosis of liver; Z79.899 Other long term (current) drug therapy; Z98.890 Other specified postprocedural states; Z68.34 Body mass index [BMI] 34.0-34.9, adult
CPT/HCPCS: 80048; 83880; 85025; 85610; 85730; 81003; 36415; 71045; 93005; 93458; C1769 ×2; C1894 ×3; C1760 ×3; A4649; J3010 ×2; J3490 ×3; J7030; J1644 ×2; J2250 ×2; J1885; Q9967; A4215; A4335; A4222; A4221; A4663; A4216; A4606; Q9965; A4223 ×2; A4554; 96360; 96361; 99156; 99157

== ENCOUNTER 2023-11-07 10:47 | Emergency (ER) | payer MEDICAID ==
[~2023-11-07] VITALS: Ht 162.6 cm; Wt 99.8 kg
[~2023-11-07 10:47] MED LIST changes: -BUPR-317 PO; +BUPR-561 PO; +VITA-427 PO; -VITA1TAB22 PO
[2023-11-07 11:23] LABS: APPEARANCE,URINE CLEAR (CLEAR); BILIRUBIN,URINE NEGATIVE (NEGATIVE); COLOR,URINE COLORLESS (YELLOW); GLUCOSE, URINE (UA) NEGATIVE (NEGATIVE); KETONES,URINE NEGATIVE (NEGATIVE); LEUKOCYTE ESTERASE ,URINE NEGATIVE Leu/uL (NEGATIVE); NITRATE,URINE NEGATIVE (NEGATIVE); OCCULT BLOOD,URINE NEGATIVE (NEGATIVE); PROTEIN,URINE NEGATIVE (NEGATIVE); UROBILINOGEN,URINE 0.2 mg/dL (0.2-1.0)
[2023-11-07 11:24] LABS: ADD UA MICROSCOPIC NO
[2023-11-07 11:27] LABS: EOSINOPHILS # (AUTO) 0.04 K/uL (0.00-0.70); EOSINOPHILS % (AUTO) 1.3 % (0.0-8.0); HEMATOCRIT 34.8 % (36-48); IMMATURE GRANULOCYTE ABSOLUTE 0.01 K/uL (0-1); LYMPHOCYTES # (AUTO) 0.5 K/uL (1.0-4.8); LYMPHOCYTES % (AUTO) 15.2 % (21.0-51.0); MEAN CORPUSCULAR HEMOGLOBIN 29.7 pg (27.0-33.0); MEAN CORPUSCULAR VOLUME 89.9 fL (79-99); MONOCYTES # (AUTO) 0.2 K/uL (0.1-1.0); MONOCYTES % (AUTO) 7.6 % (3.0-13.0); NEUTROPHILS # (AUTO) 2.4 K/uL (1.8-7.7); NEUTROPHILS % (AUTO) 75.6 % (40.0-77.0); PLATELET COUNT (AUTO) 114 K/uL (130-400); RED BLOOD CELL COUNT(AUTO) 3.87 MIL/uL (4.00-5.50); RED CELL DISTRIBUTION WIDTH 14.5 % (11.0-15.5); WHITE BLOOD COUNT (AUTO) 3.2 K/uL (4.8-10.8)
[2023-11-07 11:42] LABS: ALBUMIN 2.4 g/dL (3.5-5.0); BILIRUBIN,TOTAL 0.7 mg/dL (0.2-1.0); CREATININE 0.8 mg/dL (0.5-1.0); POTASSIUM 3.9 mmol/L (3.5-5.1)
[2023-11-07 12:34] LABS: INR 1.11 (0.85-1.15); PROTHROMBIN TIME 11.9 SEC (9.6-11.6)
[2023-11-07 12:36] LABS: PARTIAL THROMBOPLASTIN TIME 31.7 SEC (26.3-35.5)
[2023-11-07 12:58] VITALS: PULSE 79; RESP 20
[2023-11-07] MEDS: ALBUTEROL 0.083% 2.5 MG/3 ML INH IH ONE (12:58)
[2023-11-07] MEDS ORDERED: ALBUHFA IH (14:09)
[2023-11-07] MEDS ORDERED: LEVO-70 PO (14:09)
[2023-11-07 14:16] VITALS: BP 121/64; PULSE 82; RESP 18; TEMP 98.7; O2SAT 99
[2023-11-07] MEDS: levoFLOXacin 500 MG TABLET PO ONE (14:25)
== END 2023-11-07 14:33 | disposition home or self-care (01) ==
LOC: EDH 10:47
DX: J98.4 Other disorders of lung (principal); D72.819 Decreased white blood cell count, unspecified; D64.9 Anemia, unspecified; E11.65 Type 2 diabetes mellitus with hyperglycemia; R06.00 Dyspnea, unspecified; R74.8 Abnormal levels of other serum enzymes; Z79.899 Other long term (current) drug therapy; Z90.49 Acquired absence of other specified parts of digestive tract; Z90.710 Acquired absence of both cervix and uterus
CPT/HCPCS: 36415; 71045; 80053; 81003; 82140; 83690; 83880; 84484; 85025; 85610; 85730; 87426; 93005; 94640

== ENCOUNTER 2023-11-19 16:27 | Emergency (ER) | payer MEDICAID ==
[~2023-11-19] VITALS: Ht 162.6 cm; Wt 99.8 kg
[~2023-11-19 16:27] MED LIST changes: +ALBUHFA IH; +LEVO-70 PO
[2023-11-19 17:20] LABS: BASOPHILS # (AUTO) 0.01 K/uL (0.00-0.20); BASOPHILS % (AUTO) 0.3 % (0.0-5.0); EOSINOPHILS # (AUTO) 0.09 K/uL (0.00-0.70); EOSINOPHILS % (AUTO) 2.8 % (0.0-8.0); HEMATOCRIT 36.1 % (36-48); LYMPHOCYTES # (AUTO) 0.5 K/uL (1.0-4.8); LYMPHOCYTES % (AUTO) 16.5 % (21.0-51.0); MEAN CORPUSCULAR HEMOGLOBIN 29.4 pg (27.0-33.0); MEAN CORPUSCULAR VOLUME 89.1 fL (79-99); MONOCYTES # (AUTO) 0.3 K/uL (0.1-1.0); NEUTROPHILS # (AUTO) 2.4 K/uL (1.8-7.7); NEUTROPHILS % (AUTO) 72.4 % (40.0-77.0); PLATELET COUNT (AUTO) 44 K/uL (130-400); RED BLOOD CELL COUNT(AUTO) 4.05 MIL/uL (4.00-5.50); WHITE BLOOD COUNT (AUTO) 3.3 K/uL (4.8-10.8)
[2023-11-19 17:37] LABS: POTASSIUM 3.7 mmol/L (3.5-5.1)
[2023-11-19 17:42] LABS: ALBUMIN 2.6 g/dL (3.5-5.0); BILIRUBIN,DIRECT 0.2 mg/dL (0.0-0.3); BILIRUBIN,TOTAL 0.6 mg/dL (0.2-1.0); TOTAL PROTEIN, SERUM 7.3 g/dL (6.0-8.3)
[2023-11-19 17:44] LABS: PLATELET MORPHOLOGY COMMENT MARKED DECREASE
[2023-11-19 19:12] VITALS: BP 125/76; PULSE 83; RESP 17; TEMP 98.6; O2SAT 97
== END 2023-11-19 19:49 | disposition home or self-care (01) ==
LOC: EDH 16:27
DX: R06.00 Dyspnea, unspecified (principal); Z20.822 Contact with and (suspected) exposure to COVID-19; D69.6 Thrombocytopenia, unspecified; D64.9 Anemia, unspecified; F32.A Depression, unspecified; F41.9 Anxiety disorder, unspecified; R05.9 Cough, unspecified; R07.89 Other chest pain; Z79.2 Long term (current) use of antibiotics; Z79.899 Other long term (current) drug therapy; Z90.710 Acquired absence of both cervix and uterus; Z90.49 Acquired absence of other specified parts of digestive tract
CPT/HCPCS: 36415; 71045; 80048; 80076; 82140; 83880; 84484; 85025; 87426; 93005

== ENCOUNTER → 2024-12-30 | Outpatient (CLI) | payer MEDICAID ==
[~2024-12-30] MED LIST changes: -BUPR-561 PO; +BUPR-721 PO; +IOHEXOL 350 MG/ML 100ML INFUS..BTL IV ONE; +IOHEXOL-350 75 ML VIAL IV ONE
--- NOTE | 2024-12-30 12:43 | HMCIMG ---
EXAM: COMPUTED TOMOGRAPHY OF THE ABDOMEN AND PELVIS WITH AND WITHOUT INTRAVENOUS CONTRAST (THREE-PHASE; ORAL CONTRAST ADMINISTERED) Technique: Helical multiphasic computed tomography from the xiphisternum to the pubic symphysis with non-contrast, arterial, portal venous, and delayed (renal/7-minute) phases; multiplanar reconstructions performed. CTDIvol 125.2 mGy; DLP 4,816.0 mGy???cm. Contrast: Standard dose of intravenous non-ionic contrast administered. Oral contrast administered. Clinical Information: Unspecified cirrhosis of the liver. Findings: Lung bases: No pleural effusion, lobar collapse, or consolidation in the imaged lung bases. Liver: Hepatomegaly measuring 18 cm with smooth contour and mild hepatic steatosis; no focal hepatic lesion or abnormal enhancement; intrahepatic bile ducts are not dilated. Portal/hepatic veins and inferior vena cava: Portal vein, hepatic veins, and inferior vena cava are patent; portal vein is dilated, measuring 2.0 cm. Gallbladder and biliary tree: Status post cholecystectomy without complication; common bile duct is not dilated. Pancreas: Normal size and enhancement; pancreatic duct is not dilated; no peripancreatic inflammation. Spleen: Splenomegaly measuring 19 cm; homogeneous enhancement; no focal splenic lesion; perisplenic venous collaterals present. Adrenals: Normal bilaterally. Kidneys and ureters: Normal size, shape, and enhancement with prompt excretion bilaterally; no calculus, mass, or hydronephrosis. Stomach and duodenum: Stomach distended and unremarkable; gastroesophageal junction normal; pylorus and duodenum normal; venous collaterals seen in the lesser sac. Small bowel: Normal caliber and wall thickness; mesenteric fat and omentum are normal. Colon and appendix: Large bowel loops are well distended without abnormal wall thickening; no acute appendicitis. Peritoneum and mesentery: No free intraperitoneal fluid or free air. Lymph nodes: No pathologic abdominopelvic lymphadenopathy identified. Retroperitoneum and vasculature: Aorta and inferior vena cava normal in position and caliber. Pelvic organs: Urinary bladder normal. Uterus not visualized (correlate with surgical history if needed). Abdominal wall/soft tissues: No focal abnormality. Osseous structures: Mild chronic degenerative changes in the thoracolumbar spine. Impression: * Comparison: Compared with computed tomography of the abdomen and pelvis (three-phase) dated 12/20/2024 10:30 EDT: hepatomegaly (18 cm), mild hepatic steatosis, splenomegaly (19 cm), portal vein dilation (2.0 cm), perisplenic and lesser-sac collaterals, and post-cholecystectomy status are unchanged; no focal hepatic lesion on multiphasic imaging; no ascites; no abdominopelvic lymphadenopathy; no new acute abdominopelvic process. * Stigmata of portal hypertension???portal vein dilation (2.0 cm), splenomegaly (19 cm), and venous collaterals (perisplenic and lesser sac)???in the setting of reported cirrhosis; correlate with clinical and laboratory markers (platelet count, liver stiffness measures) and consider hepatology consultation for management and surveillance. * Liver with smooth contour, mild steatosis, and hepatomegaly without focal lesion on non-contrast, arterial, portal venous, or delayed phases; continue hepatocellular carcinoma surveillance per guidelines if cirrhosis is established (e.g., ultrasound with or without alpha-fetoprotein every 6 months). * Otherwise unremarkable multiphasic abdominopelvic computed tomography as detailed above. /[place]
== END | disposition home or self-care (01) ==
LOC: RAH 12-20 09:24
PROVIDERS: ATTEND Internal Medicine Gastroenterology
DX: K76.0 Fatty (change of) liver, not elsewhere classified (principal); R16.2 Hepatomegaly with splenomegaly, not elsewhere classified; K74.60 Unspecified cirrhosis of liver; K63.89 Other specified diseases of intestine; K31.89 Other diseases of stomach and duodenum; K76.6 Portal hypertension; Z90.49 Acquired absence of other specified parts of digestive tract
CPT/HCPCS: 74170; Q9967

== ENCOUNTER 2025-01-25 19:38 | Emergency (ER) | payer MEDICAID ==
[~2025-01-25] VITALS: Ht 162.6 cm; Wt 128.8 kg
[~2025-01-25 19:38] MED LIST changes: -IOHEXOL 350 MG/ML 100ML INFUS..BTL IV ONE; -IOHEXOL-350 75 ML VIAL IV ONE
--- NOTE | 2025-01-25 20:02 | ERN ---
ED Note History of Present Illness Stated Complaint: C/O ABD PAIN W/DISTENTION, SOB Chief Complaint: Abdominal Pain Time Seen by MD: 19:41 Dictation: This is a 54-year-old morbidly obese female with multiple medical problems presented to the emergency room with complaints of upper abdominal pain bilaterally for the past 2 3 days. She was recently admitted to the hospital last week and she was noted to have a pleural effusion as well as some ascites which apparently was drained. She was concerned about bloating and wanted to make sure that she did not have any recurrent ascites. She denied any nausea vomitings hematemesis or melena. Because of the pain she is unable to take deep breaths. No cough sputum or hemoptysis no fever chills or rigors. No jaundice diarrhea. Temperature 98.8 pulse 88 respirations 20 blood pressure 118/70 with a pulse oximetry of 97% on room air BMI 49 Her chronic medical problems include HIV/aids--diagnosed in 2012 and patient is on Dovate and Deptlet, she does not know her last CD4 count but stated that she has been doing well and she follows regularly with her physician. Diabetes mellitus, depression, nonalcoholic cirrhosis of the liver. She also has stigmata of portal hypertension including splenomegaly. Apparently her brother from similar cirrhosis of the liver. Allergies: Coded Allergies: No Known Drug Allergies (Unverified Allergy, Unknown, 03/31/17) Home Meds Active Scripts Albuterol Sulfate (Ventolin Hfa/Proventil Hfa/Proair Hfa) 90 Mcg Puff, 2 PUFF IH Q4H for WHEEZING, #1 INHALER 0 Refills Prov:DONOVAN MORTENSENP 11/07/23 Levofloxacin (Levofloxacin) 500 Mg Tablet, 500 MG PO DAILY for 1 Day, #10 TAB Prov:DONOVAN MORTENSENP 11/07/23 Reported Medications Omeprazole (Omeprazole) 40 Mg Capsule.dr, 40 MG PO DAILY, CAP 05/28/23 Cetirizine HCl (Cetirizine HCl) 10 Mg Tab.chew, 10 MG PO DAILY, TAB.CHEW 05/28/23 Hydrochlorothiazide (Hydrochlorothiazide) 25 Mg Tablet, 25 MG PO DAILY, TAB 05/28/23 Dolutegravir Sodium/Lamivudine (Dovato 50-300 mg Tablet) 50 Mg-300 Mg Tablet, 1 EACH PO DAILY, TAB 11/23/22 Mv-Mn/Iron/FA/Herbal/Digestive ( One Tablet) 27 Mg Iron-360 Mcg-125 Mg- 32 Mg Tablet, 1 EACH PO DAILY, TAB 11/23/22 Bupropion HCl (Bupropion Xl) 300 Mg Tab.er.24h, 300 MG PO DAILY, TAB 11/23/22 Avatrombopag Maleate (Doptelet) 20 Mg Tablet, 20 MG PO DAILY, TAB 11/23/22 Vitamin B Complex (Vitamin B Complex) 1 Each Tablet, 1 EACH PO DAILY, TAB 11/23/22 Past Medical History Past Medical History: AIDS, Diabetes-Type II, Other Additional Past Medical Hx: CIRRHOSIS OF LIVER Surgical History: Hysterectomy, Cholecystectomy PSYCH History: depression Family History: Negative Social History: Negative, Lives with family History: Not Applicable RN Note Reviewed/Agreed w/PFSH: Yes Review of System Dictation Constitutional: Negative for fever,chills, and weight loss Eyes: Negative for injury, pain,redness, and discharge ENT: Negative for injury,pain or swelling Cardiovascular: Negative for chest pain, palpitations, and edema Respiratory: Positive for shortness of breath, cough, and wheezing, Abdomen/GI: Positive for abdominal pain, nausea, vomiting, diarrhea, and constipation Back: Negative for injury and pain : Negative for injury, bleeding and discharge MS/Extremity: Negative for injury and deformity Skin: Negative for rash, and discoloration Neuro: Negative for headache, weakness, numbness, tingling, and seizure Psych: Negative for suicide ideation, homicidal ideation, and hallucinations Initial Vital Sign VS Vital Signs Date Time Temp Pulse Resp B/P (MAP) Pulse Ox O2 Delivery O2 Flow Rate FiO2 01/25/25 19:39 98.8 88 20 118/70 97 Room Air 01/25/25 22:14 0 21 Physical Exam Dictation General: awake, alert, NAD extremely obese with a BMI of 49 Head/Face: Normocephalic, atraumatic Eyes: PERRL, EOMI, vision at baseline ENT: oral cavity clear, TMs clear, no signs of infection Neck: Trachea midline, supple, no nuchal rigidity Cardiovascular: RRR, normal S1/S2, No MRGs, no JVD Respiratory: CTAB, no respiratory distress, No rales or wheezes Abdomen: Soft, non-tender, non-distended, normal bowel sounds, no guarding or rebound. I did not appreciate any ascites or fluid wave Skin: Warm, dry, normal turgor, no rash MS/Extremity: Pulses equal, no cyanosis, neurovascular intact, FROM Neuro: COAx4, GCS 15, strength 5/5, CN 2-12 intact, normal cerebellar exam, normal gait, Psych: Normal behavior, mood, and affect normal Extremities-no edema without any palpable cords, Homans sign is negative Results (Laboratory/Radiology) Laboratory/Radiology Laboratory Tests Test 01/25/25 20:01 01/25/25 20:02 Urine Color COLORLESS (YELLOW) Urine Appearance CLEAR (CLEAR) Urine pH 6.5 (5.0-8.0) Urine Specific [place] 1.008 (1.001-1.031) Urine Protein NEGATIVE mg/dL (NEGATIVE) Urine Glucose (UA) NEGATIVE mg/dL (NEGATIVE) Urine Ketones NEGATIVE mg/dL (NEGATIVE) Urine Occult Blood NEGATIVE (NEGATIVE) Urine Nitrate NEGATIVE (NEGATIVE) Urine Bilirubin NEGATIVE mg/dL (NEGATIVE) Urine Urobilinogen 0.2 mg/dL (0.2-1.0) Urine Leukocyte Esterase NEGATIVE Lang/uL White Blood Count 6.2 K/uL (4.8-10.8) Red Blood Count 4.65 MIL/uL (4.00-5.50) Hemoglobin 13.9 g/dL (12.0-16.0) Hematocrit 41.0 % (36-48) Mean Corpuscular Volume 88.2 fL (79-99) Mean Corpuscular Hemoglobin 29.9 pg (27.0-33.0) Mean Corpuscular Hemoglobin Concent 33.9 g/dL (32.0-36.0) Red Cell Distribution Width 14.5 % (11.0-15.5) Platelet Count 104 K/uL (130-400) L Mean Platelet Volume 12.6 fL (7.5-10.5) H Immature Granulocyte % (Auto) 0.3 % (0-1) Neutrophils (%) (Auto) 72.7 % (40.0-77.0) Lymphocytes (%) (Auto) 16.6 % (21.0-51.0) L Monocytes (%) (Auto) 8.2 % (3.0-13.0) Eosinophils (%) (Auto) 1.9 % (0.0-8.0) Basophils (%) (Auto) 0.3 % (0.0-5.0) Neutrophils # (Auto) 4.5 K/uL (1.8-7.7) Lymphocytes # (Auto) 1.0 K/uL (1.0-4.8) Monocytes # (Auto) 0.5 K/uL (0.1-1.0) Eosinophils # (Auto) 0.12 K/uL (0.00-0.70) Basophils # (Auto) 0.02 K/uL (0.00-0.20) Absolute Immature Granulocyte (auto 0.02 K/uL (0-1) Nucleated Red Blood Cells 0.0 % (0.0-0.19) Sodium Level 135 mmol/L (136-145) L Potassium Level 2.9 mmol/L (3.5-5.1) *L Chloride Level 95 mmol/L (101-111) L Carbon Dioxide Level 32 mmol/L (21-32) Blood Urea Nitrogen 17 mg/dL (7-18) Creatinine 1.0 mg/dL (0.5-1.0) Glomerular Filtration Rate Calc 67 mL/min (>90) Random Glucose 102 mg/dL (70-105) Total Calcium 8.6 mg/dL (8.5-10.1) Total Bilirubin 0.9 mg/dL (0.2-1.0) Aspartate Amino Transf (AST/SGOT) 34 U/L (10-37) Alanine Aminotransferase (ALT/SGPT) 38 U/L (12-78) Alkaline Phosphatase 109 U/L (50-136) Total Creatine Kinase 108 U/L (21-232) # Troponin I High Sensitivity 9 ng/L (4-50) Total Protein 7.5 g/dL (6.0-8.3) Albumin 2.9 g/dL (3.5-5.0) L Amylase Level 49 U/L (25-115) # Lipase 38 U/L (16-77) Labs Reviewed?: Yes EKG Comment: Twelve lead EKG done on 01/25/2025 at 8:09 p.m. showed a heart rate of 85, IL interval 135, QRS 95, QT/QTC 431/515. Impression normal sinus rhythm with nonspecific changes and a prolonged QT interval. EKG rhythm strip shows a normal sinus rhythm with no acute STT wave changes slightly prolonged QT. Interpreted by ER MD [facility] X-RAY Comment: GOVIND: h/o Pleural effusion ORDERING PHYSICIAN: SALMA MOODY MD PROCEDURE: CXR1VW - CHEST 1VW EXAM: CR Chest, 1 view CLINICAL HISTORY: History of pleural effusion. COMPARISON: None provided. FINDINGS: The lungs show no infiltrates or other acute findings. No pleural effusion or pneumothorax. The cardiomediastinal silhouette is within normal limits. No acute osseous abnormality. IMPRESSION: No acute cardiopulmonary process is evident. No large pleural effusion is evident radiographic evaluation, if the clinical concern persists, recommend a noncontrast CT chest for an optimal evaluation. /[place] DICTATED BY: JEANNETTE GONZALEZ Jr., MD DATE: 01/25/252227 ELECTRONICALLY SIGNED BY: JEANNETTE GONZALEZ Jr., MD DATE: 01/25/252227 Ultrasound Comment: REASON: evaluate for ascites ORDERING PHYSICIAN: SALMA MOODY MD PROCEDURE: ABD WALL - US ABD LIMITED/ABD WALL EXAMINATION: ULTRASOUND OF THE ABDOMEN (LIMITED). CLINICAL HISTORY: To evaluate for ascites. COMPARISON: CT abdomen with contrast dated 12/30/2024. TECHNIQUE: Real-time grayscale ultrasound images of the abdomen. FINDINGS: There is no free fluid in the peritoneal cavity at present. Incidentally, the spleen is bulky and measures 18.0 cm. IMPRESSION: No ascites. Incidentally noted, splenomegaly. /[place] DICTATED BY: JEANNETTE GONZALEZ Jr., MD DATE: 01/25/252319 ELECTRONICALLY SIGNED BY: JEANNETTE GONZALEZ Jr., MD DATE: 01/25/252319 CT Scan Comment: REASON: Unspecified cirrhosis of liver ORDERING PHYSICIAN: CURTIS AVERY MD PROCEDURE: ABDO 3 PH - CT ABDOMEN W/WO 3 PHASE EXAM: COMPUTED TOMOGRAPHY OF THE ABDOMEN AND PELVIS WITH AND WITHOUT INTRAVENOUS CONTRAST (THREE-PHASE; ORAL CONTRAST ADMINISTERED) Technique: Helical multiphasic computed tomography from the xiphisternum to the pubic symphysis with non-contrast, arterial, portal venous, and delayed (renal/7-minute) phases; multiplanar reconstructions performed. CTDIvol 125.2 mGy; DLP 4,816.0 mGy???cm. Contrast: Standard dose of intravenous non-ionic contrast administered. Oral contrast administered. Clinical Information: Unspecified cirrhosis of the liver. Findings: Lung bases: No pleural effusion, lobar collapse, or consolidation in the imaged lung bases. Liver: Hepatomegaly measuring 18 cm with smooth contour and mild hepatic steatosis; no focal hepatic lesion or abnormal enhancement; intrahepatic bile ducts are not dilated. Portal/hepatic veins and inferior vena cava: Portal vein, hepatic veins, and inferior vena cava are patent; portal vein is dilated, measuring 2.0 cm. Gallbladder and biliary tree: Status post cholecystectomy without complication; common bile duct is not dilated. Pancreas: Normal size and enhancement; pancreatic duct is not dilated; no peripancreatic inflammation. Spleen: Splenomegaly measuring 19 cm; homogeneous enhancement; no focal splenic lesion; perisplenic venous collaterals present. Adrenals: Normal bilaterally. Kidneys and ureters: Normal size, shape, and enhancement with prompt excretion bilaterally; no calculus, mass, or hydronephrosis. Stomach and duodenum: Stomach distended and unremarkable; gastroesophageal junction normal; pylorus and duodenum normal; venous collaterals seen in the lesser sac. Small bowel: Normal caliber and wall thickness; mesenteric fat and omentum are normal. Colon and appendix: Large bowel loops are well distended without abnormal wall thickening; no acute appendicitis. Peritoneum and mesentery: No free intraperitoneal fluid or free air. Lymph nodes: No pathologic abdominopelvic lymphadenopathy identified. Retroperitoneum and vasculature: Aorta and inferior vena cava normal in position and caliber. Pelvic organs: Urinary bladder normal. Uterus not visualized (correlate with surgical history if needed). Abdominal wall/soft tissues: No focal abnormality. Osseous structures: Mild chronic degenerative changes in the thoracolumbar spine. Impression: * Comparison: Compared with computed tomography of the abdomen and pelvis (three-phase) dated 12/20/2024 10:30 EDT: hepatomegaly (18 cm), mild hepatic steatosis, splenomegaly (19 cm), portal vein dilation (2.0 cm), perisplenic and lesser-sac collaterals, and post-cholecystectomy status are unchanged; no focal hepatic lesion on multiphasic imaging; no ascites; no abdominopelvic lymphadenopathy; no new acute abdominopelvic process. * Stigmata of portal hypertension???portal vein dilation (2.0 cm), splenomegaly (19 cm), and venous collaterals (perisplenic and lesser sac)???in the setting of reported cirrhosis; correlate with clinical and laboratory markers (platelet count, liver stiffness measures) and consider hepatology consultation for management and surveillance. * Liver with smooth contour, mild steatosis, and hepatomegaly without focal lesion on non-contrast, arterial, portal venous, or delayed phases; continue hepatocellular carcinoma surveillance per guidelines if cirrhosis is established (e.g., ultrasound with or without alpha-fetoprotein every 6 months). * Otherwise unremarkable multiphasic abdominopelvic computed tomography as detailed above. /[place] DICTATED BY: ISSA HERNANDEZ MD DATE: 12/30/241342 ELECTRONICALLY SIGNED BY: ISSA HERNANDEZ MD DATE: 12/30/24 134 ED Course ED Course Orders Procedure Category Date Status Time Vital Signs Per CPOE 01/25/25 Transmitted Routine 19:54 Saline Lock Iv CPOE 01/25/25 Transmitted 19:54 Cbc With Differential LAB 01/25/25 Complete 19:54 Comprehensive LAB 01/25/25 Complete Metabolic Panel 19:54 Lipase LAB 01/25/25 Complete 19:54 Amylase LAB 01/25/25 Complete 19:54 Urinalysis Profile LAB 01/25/25 Complete 19:54 12 Lead Ekg Tracing- EKG 01/25/25 Logged Technical 19:54 Creatine Kinase, Total LAB 01/25/25 Complete 19:54 Troponin I High LAB 01/25/25 Complete Sensitivity 19:54 Basic Metabolic Panel LAB 01/25/25 Complete 19:54 Chest 1vw RAD 01/25/25 Resulted 19:59 Morphine 4mg Syg PHA 01/25/25 Complete (Morphine 4mg Syg) 20:00 Ondansetron 4mg Inj PHA 01/25/25 Complete (Zofran 4mg Inj) 20:00 Potassium Bicarb/Cit PHA 01/25/25 Complete Ac 25meq (K-Lyte Ta 20:30 Us Abd Limited/Abd US 01/25/25 Resulted Wall 20:54 Current Medications Medications (Trade) Dose Ordered Sig/Miguel Route PRN Reason Start Time Stop Time Status Last Admin Dose Admin Morphine Sulfate (morPHINE 4MG SYG) 4 mg ONCE ONCE IVP 01/25/25 20:00 01/25/25 20:02 DC 01/25/25 20:25 Ondansetron HCl (zoFRAN 4MG INJ) 4 mg ONCE ONCE IVP 01/25/25 20:00 01/25/25 20:02 DC 01/25/25 20:24 Potassium Bicarbonate (K-Lyte Tablet Eff 25 Meq Tablet.eff) 25 meq ONCE ONCE PO 01/25/25 20:30 01/25/25 20:31 DC 01/25/25 21:33 Vital Signs Date Time Temp Pulse Resp B/P (MAP) Pulse Ox O2 Delivery O2 Flow Rate FiO2 01/25/25 22:14 89 18 126/60 98 Room Air* 0 21 01/25/25 19:39 98.8 88 20 118/70 97 Room Air Medical Decision Making MDM Differential diagnosis: Cholangitis, colitis, constipation, costochondritis, musculoskeletal pain, pain due to hepatic and splenic capsule stretching. This is a 54-year-old morbidly obese female with multiple medical problems presented to the emergency room with complaints of upper abdominal pain bilaterally for the past 2 3 days. She was recently admitted to the hospital last week and she was noted to have a pleural effusion as well as some ascites which apparently was drained. She was concerned about bloating and wanted to make sure that she did not have any recurrent ascites. She denied any nausea vomitings hematemesis or melena. Because of the pain she is unable to take deep breaths. No cough sputum or hemoptysis no fever chills or rigors. No jaundice diarrhea. Temperature 98.8 pulse 88 respirations 20 blood pressure 118/70 with a pulse oximetry of 97% on room air BMI 49 Her chronic medical problems include HIV/aids--diagnosed in 2012 and patient is on Dovate and Deptlet, she does not know her last CD4 count but stated that she has been doing well and she follows regularly with her physician. Diabetes mellitus, depression, nonalcoholic cirrhosis of the liver. She also has stigmata of portal hypertension including splenomegaly. Apparently her brother from similar cirrhosis of the liver. 9:00 p.m. labs reviewed CBC with a normal limits BNP 7 showed a sodium of 135 chloride 95 bicarbonate 32 potassium 2.9 BUN and creatinine are 17 and 1.0. LFTs are within normal limits albumin is 2.9 lipase is 38. Urinalysis is unremarkable. Chest x-ray is negative for any pleural effusions poor effort secondary to very large body habitus and restriction. 11:00 p.m. abdominal ultrasound did not reveal any ascites but confirmed changes of cirrhosis and also splenomegaly. Patient responded to symptomatic management. I updated her on all the diagnostic test results and possibility that the pain maybe related to hepatosplenomegaly or perhaps weight gain, musculoskeletal. Your I recommended that she follow up with her GI physician to discuss her pain. Rationale: Tests considered and ordered secondary to shared decision making include: Blood work, urinalysis, radiology Previous outside records reviewed: Old ER visits. Risk of complication and/or morbidity or mortality of patient management: None Medications-Per medication reconciliation Need for hospitalization: Patient does not meet criteria for hospitalization. Need for emergency major/minor surgery: No There are no social concerns with this patient. Prescription drug management Prescriptions will include symptomatic care Patient's prior external medical records from other ER visits were reviewed by me as indicated. Prior testing and results from previous visits were reviewed. Prior tests were taken into account with medical decision making and resource utilization, independent historian/historians were used to obtain complete medical history. I independently interpreted the test that were performed, results were reviewed by me and considered findings on radiology if ordered. Medical management and examination interpretation discussions were had by me with other qualified healthcare professionals as indicated for the patient's care. Problem List Problem List: (1) Bilateral upper abdominal pain (2) Non-alcoholic micronodular cirrhosis of liver (3) Hypokalemia (4) HIV (human immunodeficiency virus infection) (5) Splenomegaly (6) Hepatomegaly DX & DISP Disposition: Discharge Departure Impression: Primary Impression: Bilateral upper abdominal pain Additional Impressions: Hepatomegaly, Splenomegaly, Hypokalemia, Non- alcoholic micronodular cirrhosis of liver, HIV (human immunodeficiency virus infection) Condition: Stable Additional Instructions: Patient and the caregiver have been informed of all the diagnostic tests and the imaging conducted during the today's visit to the emergency room and has verbalized understanding of the results I have personally reviewed and interpreted all diagnostic exams performed here in the ER today as well as the vital signs documented by the nursing staff. The patient is now being discharged to home and should follow up with the primary care physician or the specialist as directed by the ER staff. Follow-up with primary care provider in 1 to 2 days. Take medications as directed here in the emergency room. Okay to continue home medications unless otherwise discussed during your visit in the emergency room today. Return to your nearest emergency room if symptoms worsen or if there is no improvement. Call 911 if you need immediate assistance. Take Tylenol or Motrin [id number] as needed and if no contraindications are present. Increase oral hydration. A wound culture or urine culture was ordered here in the emergency room department please follow-up with primary care provider and advise them to get repeat ports from our facility. If you had any Carlos wrap/splints that were applied here, please do not remove them until you see your primary care or specialty. I explained to the patient that the upper abdominal pain underneath her rib cages bilaterally could be related to her hepatomegaly and splenomegaly with a stretched capsules. The other possibility maybe simply inflammation and costochondritis. There is no recurrent pleural effusion and there was no ascites on the abdominal ultrasound. She needs to follow up with the GI and her primary care physician as well as ID Referrals: ANNE BLACKBURN (PCP) SALMA MOODY MD Jan 25, 2025 20:02
[2025-01-25 20:10] LABS: APPEARANCE,URINE CLEAR (CLEAR); GLUCOSE, URINE (UA) NEGATIVE (NEGATIVE); LEUKOCYTE ESTERASE ,URINE NEGATIVE Leu/uL (NEGATIVE); NITRATE,URINE NEGATIVE (NEGATIVE); OCCULT BLOOD,URINE NEGATIVE (NEGATIVE)
[2025-01-25 20:12] LABS: IMMATURE GRANULOCYTE ABSOLUTE 0.02 K/uL (0-1); NUCLEATED RED BLOOD CELLS 0.0 % (0.0-0.19); PLATELET COUNT (AUTO) 104 K/uL (130-400); RED BLOOD CELL COUNT(AUTO) 4.65 MIL/uL (4.00-5.50); RED CELL DISTRIBUTION WIDTH 14.5 % (11.0-15.5); WHITE BLOOD COUNT (AUTO) 6.2 K/uL (4.8-10.8)
[2025-01-25 20:14] LABS: ADD UA MICROSCOPIC NO
[2025-01-25 20:25] LABS: ASPARTATE AMINOTRANSFERASE 34.0 U/L (10-37); CREATINE KINASE, TOTAL 108.0 U/L (21-232); CREATININE 1.0 mg/dL (0.5-1.0); GLOMERULAR FILTR. RATE CALC 67.0 mL/min (>90); GLUCOSE,RANDOM 102.0 mg/dL (70-105); SODIUM SERUM 135.0 mmol/L (136-145); TOTAL PROTEIN, SERUM 7.5 g/dL (6.0-8.3); UREA NITROGEN, BLOOD 17.0 mg/dL (7-18)
--- NOTE | 2025-01-25 21:29 | HMCIMG ---
EXAM: CR Chest, 1 view CLINICAL HISTORY: History of pleural effusion. COMPARISON: None provided. FINDINGS: The lungs show no infiltrates or other acute findings. No pleural effusion or pneumothorax. The cardiomediastinal silhouette is within normal limits. No acute osseous abnormality. IMPRESSION: No acute cardiopulmonary process is evident. No large pleural effusion is evident radiographic evaluation, if the clinical concern persists, recommend a noncontrast CT chest for an optimal evaluation. /[place]
--- NOTE | 2025-01-25 22:21 | HMCIMG ---
EXAMINATION: ULTRASOUND OF THE ABDOMEN (LIMITED). CLINICAL HISTORY: To evaluate for ascites. COMPARISON: CT abdomen with contrast dated 12/30/2024. TECHNIQUE: Real-time grayscale ultrasound images of the abdomen. FINDINGS: There is no free fluid in the peritoneal cavity at present. Incidentally, the spleen is bulky and measures 18.0 cm. IMPRESSION: No ascites. Incidentally noted, splenomegaly. /[place]
[2025-01-25 23:18] VITALS: BP 128/66; PULSE 94; RESP 18; TEMP 98.2; O2SAT 96
--- NOTE | 2025-01-26 05:35 | EKG ---
[facility] Test Date: 2025-01-25 Test Time: 20:09:19 Pat Name: PRAFUL RÍOS Department: ED Room: Gender: [address] [employer]: [id number] : 1970 Requested By: SALMA MOODY Order Number: [id number] Reading MD: Measurements Intervals [place] Rate: 85 P: 35 MS: 135 QRS: 8 QRSD: 95 T: 15 QT: 431 QTc: 515 Interpretive Statements Sinus rhythm Prolonged QT interval No previous ECG available for comparison Please click the below link to view image of tracing.
== END 2025-01-25 23:28 | disposition home or self-care (01) ==
LOC: EDH 19:38
DX: R10.12 Left upper quadrant pain (principal); R10.11 Right upper quadrant pain; E87.6 Hypokalemia; R16.2 Hepatomegaly with splenomegaly, not elsewhere classified; K74.69 Other cirrhosis of liver; E11.9 Type 2 diabetes mellitus without complications; Z21 Asymptomatic human immunodeficiency virus [HIV] infection status; F32.A Depression, unspecified; Z79.624 Long term (current) use of inhibitors of nucleotide synthesis; Z79.899 Other long term (current) drug therapy; Z90.49 Acquired absence of other specified parts of digestive tract; Z90.710 Acquired absence of both cervix and uterus
CPT/HCPCS: 99285; 96374; 76705; 71045; 96375; 82150; 82550; 84484; 80053; 83690; 85025; 81003; 36415; 93005; J2405; J2270